=== PATIENT | male | born 1945 | race Caucasian/White ===

== ENCOUNTER 2024-03-19 06:54 | Observation (INO) | payer OTHER, SELFPAY ==
[2024-03-19] VITALS (16 sets, daily range): BP systolic 118–144; BP diastolic 59–80; PULSE 63–100; RESP 16–96; TEMP 36.6–37.3; O2SAT 94–100; BMI 37.1
--- NOTE | 2024-03-19 | XR_ITS ---
Examinations: MRI Brain without intravenous contrast. MRA brain without intravenous contrast. MRA carotids without intravenous contrast 3-D vascular reconstructions Date and time of exam: March 19, 2024 1403 hours INDICATIONS: Onset left-sided body weakness beginning 220 this morning, CT stroke alert, new onset left upper extremity weakness left facial droop and slurred speech, patient admitted one week ago for transient ischemic attack Technique: Multiple axial and sagittal images of the brain have been obtained MRA brain carotid images without contrast obtained, including 3-D postprocessing, vascular maximum intensity projection images Findings: Sellaturcica is not enlarged. The optic chiasm and infundibular stalk are not remarkable. Prepontine and interpeduncular cisterns are not enlarged. No localized enlargement of the medulla or charles. Fourth ventricle and cerebellar tonsils normal in position. Subacute hemorrhage is not seen. Fourth ventricle is midline. Mass in the cerebellopontine angle region is not evident. 7th and 8th nerve complexes exhibits symmetry. Globes are symmetrical with no retro-orbital mass. Increased white matter signal prominent Diffusion-weighted images demonstrate no focus of restricted diffusion Mass-effect upon the ventricular system is not identified. MRA carotid images degraded by patient motion. MRA brain images degraded by patient motion, no large vessel occlusions Impression: Negative for acute hemorrhage mass effect or midline shift No acute infarct Prominent chronic microvascular white matter change
--- NOTE | 2024-03-19 06:58 | PD.EDNEURO ---
Neuro Symptoms Deficit-RME/HPI General Chief Complaint: Neuro Symptoms/Deficit Stated Complaint: POSS STROKE Time Seen by Provider: 03/19/24 07:00 Arrival date/time: 03/19/24 06:54 RME / HPI RME / HPI Narrative: 78 year old male with history of TIA, CHF, hypertension, diabetes, hyperlipidemia presents to the ED BIBA from home for evaluation of left sided weakness today. Per medics, reported at 02:20 this morning patient had a fall and called 911 where fire department responded and assisted the patient back on to bed. noticed at around 06:20 am patient had new onset left upper extremity weakness, left facial droop and slurred speech. Additionally reported patient was just admitted here 1 week ago for TIA. Medics stated on scene patient was found to be sitting in his recliner leaning on the right side and required full assistance getting on the gurney. On their assessment noted patient's LUE was completely flaccid and had BLE weakness. Related Data Home Medications ?Medication ?Instructions ?Recorded ?Confirmed metformin 1,000 mg tablet 1,000 mg PO BID #0 tabs 11/30/13 03/10/24 (Glucophage) metoprolol succinate 50 mg 25 mg PO QDAY 04/26/18 03/10/24 tablet,extended release 24 hr furosemide 40 mg tablet 40 mg PO BID 08/25/21 03/10/24 potassium chloride 8 mEq 8 meq PO QDAY 08/25/21 03/10/24 tablet,extended release (Klor-Con) amlodipine 10 mg-benazepril 40 mg 1 cap PO ONCE PM 03/10/24 03/10/24 capsule Previous Rx's ?Medication ?Instructions ?Recorded aspirin 81 mg tablet,delayed 81 mg PO QDAY #30 tabs 03/12/24 release atorvastatin 10 mg tablet 40 mg (4 x 10 mg) PO QDAY #90 tabs 03/12/24 Allergies Allergy/AdvReac Type Severity Reaction Status Date / Time No Known Allergies Allergy Verified 12/01/22 13:55 Review of Systems Review of Systems Narrative Review of Systems: Gen: No fever, no chills, no weight loss EYES: No discharge, no visual changes, no pain HEENT: No ear pain, no congestion, no sore throat PULM: no shortness of breath, no cough, no congestion CV: No chest pain, no dyspnea on exertion, no palpitations, no chest tightness GI: No nausea, no vomiting, no diarrhea, no pain, no constipation : No frequency, no urgency,? no dysuria Musc/skel: No joint pain, no back pain Skin: No rash, no ecchymosis, no lesions Psyc: No hallucinations, no depression Heme/Lymph: No easy bleeding or bruising tendencies Neuro: +LUE weakness, +BLE weakness, +facial drop, +slurred speech, no headache Past Medical History Past Medical History NEUROLOGIC: Positive Peripheral Neuropathy and Spinal Cord Injury CARDIAC: Positive Cardiac Disorders, Hypercholesterolemia, Congestive Heart Failure, Cellulitis and Hypertension RESPIRATORY: Positive Smoking (QUIT 1968.) GASTROINTESTINAL: Positive Obesity GENITOURINARY: Positive Benign Prostatic Hyperplasia MUSCULOSKELETAL: Positive Arthritis and Degenerative Disk Disease ENDOCRINE: Positive Endocrine Disorders and Diabetes Mellitus Type 2 OTHER HISTORY: Positive Blood Transfusions, Chicken Pox, Measles and Mumps Family History FAMILY HISTORY: Positive Family Cardiac Disorders and Family Surgery Surgical History SURGICAL: Positive Joint Replacement Social History SMOKING STATUS: Former smoker SUBSTANCE USE: does not use ED Exam Narrative Physical exam: GENERAL APPEARANCE: AxOx4, no obvious distress, nontoxic appearing HEENT: NC, AT. MMM. EOMI, clear conjunctiva, oropharynx clear. NECK: Supple without lymphadenopathy. No stiffness or restricted ROM. HEART: Normal rate and regular rhythm, normal S1/S1, no m/r/g LUNGS: CTAB, moving air well. No crackles or wheezes are heard. ABDOMEN: Soft, nontender, nondistended with good bowel sounds heard. BACK: No midline C/T/L spine pain or deformity, No CVAT, no obvious deformity. EXTREMITIES: Without cyanosis, clubbing or edema. NEUROLOGICAL: Alert and oriented. Slight slurred speech. Right facial droop. Left upper extremity tone but will not lift against gravity. Right upper extremity tone, can lift against gravity with slight drift. Able to move bilateral lower extremities but does not lift against gravity. Skin: Warm and dry without any rash. Course Quality Measures Suspected type of Stroke: Non Acute Last known well (date): 03/19/24 Last known well (time): 02:20 Tenecteplase given: Reason(s) TPA not given: Outside the time window not given stroke Orders Category Date Time Status Bedside Blood Glucose NOW Care 03/19/24 06:59 Active Matzo Forming Machine Operator NOW Care 03/19/24 06:59 Active Continuous Pulse Oximetry NOW Care 03/19/24 06:59 Completed EKG (ED ONLY) *Do not use* NOW Care 03/19/24 06:59 Completed In and Out Catheter NEEDED Care 03/19/24 06:59 Active Insert IV NOW Care 03/19/24 06:59 Active NIH Stroke Scale now Care 03/19/24 06:59 Active NPO NOW Care 03/19/24 06:59 Active Neuro Check Q30MIN Care 03/19/24 06:59 Active Nurse Swallow Screen x1 Care 03/19/24 06:59 Active Consult to Neurology / Tele-Neurology Routine Cons 03/19/24 06:[address] angio stroke protocol Stat Exams 03/19/24 06:[address] stroke protocol Stat Exams 03/19/24 06:59 Completed EKG (ED Only) Stat Exams 03/19/24 06:59 Draft Alcohol, Blood Medical Stat Lab 03/19/24 07:17 Completed CBC Stat Lab 03/19/24 07:17 Completed Comprehensive Metabolic Panel Stat Lab 03/19/24 07:17 Completed Drug Screen,Urine Stat Lab 03/19/24 06:59 Ordered Magnesium Stat Lab 03/19/24 07:17 Completed Partial Thromboplastin Time Stat Lab 03/19/24 07:17 Completed Prothrombin Time with INR Stat Lab 03/19/24 07:17 Completed Troponin I Stat Lab 03/19/24 07:17 Completed Urinalysis Stat Lab 03/19/24 06:59 Ordered Urine Culture Stat Lab 03/19/24 06:59 Ordered Aspirin Med 03/19/24 07:55 Discontinued 325 mg PO X1 ONE Clopidogrel [Plavix] Med 03/19/24 07:42 Discontinued 300 mg PO X1 ONE Ondansetron Inj [Zofran Inj] Med 03/19/24 06:59 Active 4 mg IV Q4HR PRN Oxygen Delivery NOW RT 03/19/24 06:59 Active Reevaluation(s) Reevaluation #1: Patient has no chest pain at this time. The EKG performed today has a new left bundle branch block compared to EKG on 02/28/2024. Patient states he was referred to see Dr. Ruiz however has not had his first appointment yet. Time: 08:15 Vital Signs Vital signs: Vital Signs Temperature 98.4 F 03/19/24 06:58 Pulse Rate 98 03/19/24 06:58 Respiratory Rate 19 03/19/24 06:58 Blood Pressure 130/72 03/19/24 06:58 Pulse Oximetry (%) 98 03/19/24 06:58 Oxygen Delivery Method Room Air 03/19/24 06:58 Pulse ox is 98% on room air which is adequate. Neuro Symptoms / Deficit MDM Narrative MDM Narrative:: Deidra Segovia am scribing for and in the presence of Dr. Cosby. Patient data External records reviewed:: [facility] previous records (I reviewed admission from 03/09/2024 through 03/13/2024 for TIA ) and EMS form Clinical information provided by:: patient and EMS Social determinants that could affect healthcare access:: none Patient has the following chronic illnesses:: TIA, CHF, hypertension, diabetes, hyperlipidemia How is presenting disease/condition affected by chronic disease/condition?: exacerbated by Evaluation data The following diagnostics were reviewed and interpreted by me:: lab results, radiology exam(s) and EKG tracing(s) (Sinus rhythm, rate 86, left bundle branch block that is new compared to EKG on 03/09/2024. QRS at that time was 86ms and today is 148ms in bundle branch pattern. ) Lab and/or radiology exams considered but not ordered:: None Interpretation Summary: Ordering Physician: Dalton Cosby MD Date of Service: 03/19/24 Procedure(s): CT stroke protocol Accession Number(s): [id number] cc: Dalton Cosby MD; Sergei Vo MD~ Examination: CT brain head without contrast. 2-D sagittal coronal reconstructions Date and time of exam:March 19, 2024 0703 hrs. Indications: Onset left-sided body weakness today, focal neurologic deficit, stroke alert, history CVA right caudate nucleus on CT brain scan March 09, 2024 CTDI: vol (mGy):52.5 DLP: (mGycm):1097 Technique: Multiple CT axial sections of the brain have been obtained, 5 mm slice thickness. Contrast has not been administered. 2-D sagittal, coronal reconstructions have been obtained Low dose protocols were performed. One or more of the following dose reduction techniques were used; automated exposure control, adjustment of the mA and/or KV according to patient size, use of iterative reconstruction technique. Findings: No significant ventricular enlargement. 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 No mass effect or midline shift Basal cisterns are not remarkable. Fourth ventricle is midline. Cranial vault intact. Impression: Negative for acute hemorrhage, mass effect or midline shift Dictated By:Sergei Vo MD Signed By:<Electronically signed by Sergei Vo MD in OV>03/19/24 0712 Ordering Physician: Dalton Cosby MD Date of Service: 03/19/24 Procedure(s): CT angio stroke protocol Accession Number(s): [id number] cc: Jose Manuel Duff MD; Dalton Cosby MD; Sergei Vo MD~ Examination: CTA carotids with intravenous contrast CTA brain, head with intravenous contrast. 2-D sagittal, coronal reconstructions. 3-D reconstructions. Exam date and time: March 19, 2024 0716 hrs. Indications: Stroke alert, onset left-sided body weakness headache today CTDI: vol (mGy) 18.9 DLP: (mGycm) 446 Technique: Multiple CTA axial brain, head carotid images post intravenous contrast injection 75 cc, Isovue-[id number]. 2-D sagittal, coronal reconstructions. 3-D reconstructions, 3-D post processing including vascular maximum intensity projection images. Low dose protocols were performed. One or more of the following dose reduction techniques were used; automated exposure control, adjustment of the mA and/or KV according to patient size, use of iterative reconstruction technique. Findings: No significant common carotid carotid bifurcation or internal carotid artery stenoses Dominant left vertebral artery with no critical stenoses No large vessel occlusions involving middle cerebral or anterior cerebral branches 2 focal areas of lack of filling of the left posterior cerebral artery, P1 segment and junction P1 segment with P2 segment, clinical correlation advised Impression: No significant neck arterial stenoses 2 focal areas of possible stenoses in the left posterior cerebral artery, P1 segment and junction P1 segment with P2 segment, clinical correlation advised Recommend repeat brain MRI MRA without contrast, stroke protocol, follow-up Dictated By:Sergei Vo MD Signed By:<Electronically signed by Sergei Vo MD in OV>03/19/24 0806 Medications / Prescriptions Medications or Prescriptions considered but not ordered:: None Medication administrations:: Medication Administration History Ondansetron HCl (Ondansetron Inj 2 Mg/Ml Inj 2 Ml) 4 mg IV Q4HR PRN PRN Reason: NAUSEA OR VOMITING Stop: 04/18/24 06:58 Discontinued Medications Aspirin (Aspirin 325 Mg Tablet) 325 mg PO X1 ONE Stop: 03/19/24 07:56 Last Admin: 03/19/24 08:12 Dose: 325 mg Documented By: MAGDA Clopidogrel Bisulfate (Clopidogrel Bisulfate 75 Mg Tablet) 300 mg PO X1 ONE Stop: 03/19/24 07:43 Last Admin: 03/19/24 08:12 Dose: 300 mg Documented By: MAGDA See above Consultations Consultation(s) initiated? (list below): Yes Consultation #1 (Physician, Specialty, Details): I spoke with teleneurologist Dr. Rendon, states patient is no a tpa candidate given his LKW is above the 4.5 window. Advising starting patient on a loading dose of Aspirin and Plavix. Time: 07:37 Consultation #2 (Physician, Specialty, Details): I spoke with resident Dr. Mueller working with Dr. Webster. Discussed patients PMHx, HPI, ED course, exam findings, labs, and radiology results. The hospitalist agree to accept the patient for admission. Time: 09:25 Diagnosis Neuro Differential Diagnosis: subarachnoid hemorrhage, cerebrovascular accident and transient cerebral ischemia Most likely diagnosis given after review of the tests above:: TIA Admission Indicated Admission indicated?: indicated Admission Request Was there a request for admission?: Yes Admission Attestation Admission request attestation: Discussed case with [] from Hospitalist service regarding admission. Discussed patients ED course, exam findings, labs, and radiology results. The Hospitalist [agrees,declines] to accept the patient for admission. Disposition Plan Disposition Plan: Admit Critical Care Time Critical Care Time Critical Care Time: Yes Total Critical Care Time (min.): 35 Attestation: The high probability of sudden, clinically significant deterioration in the patient's condition required the highest level of my preparedness to intervene urgently. The services I provided to this patient were to treat and/or prevent clinically significant deterioration. Services included the following: chart data review, reviewing nursing notes and/or old charts, documentation time, informatics consultant collaboration regarding findings and treatment options, medication orders and management, direct patient care, vital sign assessments and ordering, interpreting and reviewing diagnostic studies and lab tests. Aggregate critical care time includes only time during which I was engaged in work directly related to the patient's care, as described above, whether at bedside or elsewhere in the Emergency Department. It did not include time spent performing other reported procedures or the services of residents, students, nurses or physician assistants. Discharge Plan Plan Patient Disposition: Admit Acute Care w/in Hospital Prescriptions/Referrals Prescriptions/Med Rec: No Action metformin [Glucophage] 1,000 MG tablet 1,000 mg PO BID Qty: 0 furosemide 40 mg tablet 40 mg PO BID Patient Comments: TAKE 1 TABLET BY MOUTH ONCE A DAY AT NOON Rx Instructions: TAKE ONE TABLET BY MOUTH AT 10AM & ONE TABLET AT 4PM potassium chloride [Klor-Con 8] 8 mEq tablet extended release 8 meq PO QDAY Patient Comments: TAKE 1 TABLET BY MOUTH ONCE A DAY AT NOON metoprolol succinate 50 mg Tablet Extended Release 24 Hr 25 mg PO QDAY amlodipine-benazepril 10-40 mg capsule 1 cap PO ONCE PM Patient Comments: TAKE 1 CAPSULE BY MOUTH DAILY AT DINNER. aspirin 81 mg Tablet,Delayed Release (Dr/Ec) 81 mg PO QDAY Qty: 30 0RF atorvastatin 10 mg Tablet 40 mg PO QDAY Qty: 90 0RF Referrals: Jose Manuel Duff MD [Primary Care Provider] - In 1 week Problem List Clinical Impression: TIA (transient ischemic attack) Patient/Caregiver Discharge Instructions Print Language: Telugu Stand Alone Forms: [employer]ily[employer] Award Info., Patient Portal Info Letter
--- NOTE | 2024-03-19 06:59 | EKG_ITS ---
[facility] Test Date: 2024-03-19 Pat Name: JEFF BUSTAMANTE Department: Room: - Gender: Male Herb Grower: : 1945 Requested By: Dalton Cosby Order Number: [id number] Reading MD: Dalton Cosby Measurements Intervals Sherrill Rate: 86 P: 62 NH: 170 QRS: -43 QRSD: 148 T: 91 QT: 398 QTc: 478 Interpretive Statements SINUS RHYTHM MARKED LEFT AXIS DEVIATION [QRS AXIS < -30] LEFT BUNDLE BRANCH BLOCK [120+ ms QRS DURATION, 80+ ms Q/S IN V1/V2, 85+ ms R IN I/aVL/V5/V6] Compared to ECG 03/09/2024 23:25:52 Left-axis deviation now present Left bundle-branch block now present Myocardial infarct finding no longer present /store/S0/[id number]/ecg/[id number].pdf
--- NOTE | 2024-03-19 07:01 | PC.NURSE ---
Tele Neuro Case # [id number]
--- NOTE | 2024-03-19 07:18 | ESCONSULT_ITS ---
Tele Neuro Consultation Consultation Date 03/19/24 Most Recent Vital Signs Last Vital Signs Temp 98.4 F 03/19/24 06:58 Pulse 98 03/19/24 06:58 Resp 19 03/19/24 06:58 BP 130/72 03/19/24 06:58 Pulse Ox 98 03/19/24 06:58 O2 Del Method Room Air 03/19/24 06:58 Consultation Narrative [facility] Consult [facility] Patient Name:???JEFF BUSTAMANTE Date of :???1945 Identification Number:??? Date of Service:???03/19/2024 07:00:53 Diagnosis:?G93.41 - Encephalopathy Metabolic ?I63.89 - Cerebrovascular accident (CVA) due to other mechanism (HCCC) Impression: ?dysarthria and left sided weakness with left visual field cut; possible acute ischemic stroke vs stroke recrudescence in the setting of possible acute toxic or metabolic or infectious encephalopathy (however, left visual field cut is not explained by prior right lacunar stroke) ? ?Plan: recommend CTA head/neck. load with aspirin 325 mg x1 and plavix 300 mg x1. Allow permissive hypertension up to 220/110 for first 24 hours with gradual reduction for goal normotension thereafter. Recommend [id number] workup, including U/A, UCx. Recommend admission for further workup. Will need an MRI brain with and without contrast when able, echo, continue to monitor on telemetry, labs for risk factor stratification (lipid panel, HbA1c, TSH with free T4), PT/OT/speech eval. ? ?Plan discussed with patient, ED team, including ED provider, who are all in agreement with plan. All questions answered to the best of my ability. Sign Out: ? Discussed with Emergency Department Provider Metrics: Last Known Well: 03/19/2024 02:00:00 Dispatch Time: 03/19/2024 07:00:53 Arrival Time: 03/19/2024 06:58:00 Initial Response Time: 03/19/2024 07:03:48Symptoms: slurred speech with left facial droop and left arm weakness. Initial patient interaction: 03/19/2024 07:19:24 NIHSS Assessment Completed: 03/19/2024 07:34:33Patient is not a candidate for Thrombolytic. Thrombolytic Medical Decision: 03/19/2024 07:35:00Patient was not deemed candidate for Thrombolytic because of following reasons: LKW outside 4.5 hr window. . Imaging was personally reviewed. CTH shows diffuse atrophy and small vessel ischemic disease as well as a chronic appearing hypodensity in the right caudate head/anterior limb of internal capsule but is negative for bleed or early ischemic changes. Primary Provider Notified of Diagnostic Impression and Management Plan on: 03/19/2024 07:37:20 History of Present Illness:Patient is a 78 year old Male. Patient was brought by EMS for symptoms of slurred speech with left facial droop and left arm weakness. 78 yo man with a history of hypertension, hyperlipidemia, diabetes, prior stroke/TIA (left-sided weakness) who presents to [facility] ED via EMS for slurred speech, left facial droop, and left arm weakness LKW unclear. however, he fell out of his recliner at 0200 am so EMS was called for assistance to get him back in bed. no facial droop or left arm weakness noted at that time. however, new slurred speech and left facial droop and left arm weakness noted upon waking up this morning at 0615. of note, he presented last week with transient left-sided weakness. he was admitted 03/09/24-03/12/24. CT/CTA/MRI/MRA/TTE where all unrevealing for acute findings. spot EEG showed diffuse slowing without asymmetry or interictal activity noted. Ambulates with a walker at baseline but is very sedentary and stays in his recliner for the most part. ? Past Medical History: ?Hypertension ?Diabetes Mellitus ?Hyperlipidemia ?Stroke Medications: No Anticoagulant use? Antiplatelet use:?Yes?aspirin 81 mg daily Reviewed EMR for current medications Other Medications Pertinent To Assessment Include: amlodipine-benazepril ?metoprolol ?atorvastatin ?metformin Allergies:? Reviewed Social History: Smoking: No Family History: There is no family history of premature cerebrovascular disease pertinent to this consultation ROS : 14 Points Review of Systems was performed and was negative except mentioned in HPI. Past Surgical History: There Is No Surgical History Contributory To Today?s Visit ? Examination: BP(130/72),?Pulse(98),?Blood Glucose(134) 1A: Level of Consciousness - Alert; keenly responsive?+ 0 1B: Ask Month and Age - Both Questions Right?+ 0 1C: Blink Eyes & Squeeze Hands - Performs Both Tasks?+ 0 2: Test Horizontal Extraocular Movements - Normal?+ 0 3: Test Visual Ordoñez - Partial Hemianopia?+ 1 4: Test Facial Palsy (Use Grimace if Obtunded) - Partial paralysis (lower face)? + 2 5A: Test Left Arm Motor Drift - Drift, but doesn't hit bed?+ 1 5B: Test Right Arm Motor Drift - No Drift for 10 Seconds?+ 0 6A: Test Left Leg Motor Drift - No Drift for 5 Seconds?+ 0 6B: Test Right Leg Motor Drift - No Drift for 5 Seconds?+ 0 7: Test Limb Ataxia (FNF/Heel-Garcias) - No Ataxia?+ 0 8: Test Sensation - Normal; No sensory loss?+ 0 9: Test Language/Aphasia - Normal; No aphasia?+ 0 10: Test Dysarthria - Normal?+ 0 11: Test Extinction/Inattention - No abnormality?+ 0 NIHSS Score:?4 NIHSS Free Text :?appears to have a left visual field cut with blink to threat. Pre-Morbid Modified Meliton Scale:3 Points = Moderate disability; requiring some help, but able to walk without assistance Spoke with :?Dr. Cosby This consult was conducted in real time using interactive audio and video technology. Patient was informed of the technology being used for this visit and agreed to proceed. Patient located in hospital and provider located at home/office setting. Patient is being evaluated for possible acute neurologic impairment and high pr obability of imminent or life-threatening deterioration. I spent total of 36 minutes providing care to this patient, including time for face to face visit via telemedicine, review of medical records, imaging studies and discussion of findings with providers, the patient and/or family. Dr Vicky Rendon [facility] For Inpatient follow-up with [facility] physician please call [facility] at [phone]- [phone]. As we are not an outpatient service for any post hospital discharge needs please contact the hospital for assistance. If you have any questions for the [facility] physicians or need to reconsult for clinical or diagnostic changes please contact us via [facility] at .
[2024-03-19 07:25] LABS: Basophils % (Auto) 0 % (0-2.5); Eosinophils % (Auto) 0 % (0-10); Hematocrit 42.5 % (41.0-53.0); Hemoglobin 14.3 g/dL (13.5-16.0); Immature Granulocytes % (Auto) 0 % (0-0); Immature Granulocytes Auto 0.05 Thou/mm3 (0.00-0.00); Lymphocytes # (Auto) 1.5 Thou/mm3 (1.0-4.8); Lymphocytes % (Auto) 11 % (10-50); Mean Corpuscular HGB Conc 33.6 g/dl (31.0-37.0); Mean Corpuscular Hemoglobin 30.8 pg (25.0-35.0); Mean Corpuscular Volume 92 fL (80-100); Monocytes # (Auto) 0.5 Thou/mm3 (0.0-0.8); Monocytes % (Auto) 4 % (0-12); Neutrophils % (Auto) 84 % (37-80); Nucleated Red Blood Cell % 0 /100 WBC (0); Platelet Count 170 Thou/mm3 (140-440); RDW Standard Deviation 45.9 fL (35.1-43.9); Red Blood Count 4.64 Miln/mm3 (4.50-5.90)
--- NOTE | 2024-03-19 07:33 | PC.NURSE ---
Patient back from ct, Dr. Rendon, teleneurologist evaluating patient, no Tnkase to be given at this time, Patient to er via ems from home with c/o left facial droop, slurred speech and left sided weakness since 0620 this am. Patient recently admitted to hospital for similar symtoms and was dx'd with TIA. Currently patient alert and oriented x 3, speech clear, slilght left facial droop, and left sided weakness. Patient following commands and answering questions appropriately. Call light within reach, awaiting further orders.
[2024-03-19 07:40] LABS: Partial Thromboplastin Time 26.2 Seconds (22.0-36.0); Prothrombin Time 11.4 Seconds (9.0-12.2)
[2024-03-19 07:44] LABS: Alanine Aminotransferase 14 U/L (10-49); Albumin, Serum 4.1 gm/dL (3.4-4.8); Albumin/Globulin Ratio 1.6 (1.2-2.2); Alcohol, Blood Medical < 3.0 mg/dL (0-10.0); Alkaline Phosphatase 68 U/L (46-116); Anion Gap 11 (7-16); BUN/Creatinine Ratio 16 Ratio (12-20); Bilirubin,Total 0.4 mg/dL (0.3-1.2); Blood Urea Nitrogen 25 mg/dL (9-23); Calcium 9.1 mg/dL (8.3-10.6); Calcium (Corrected) 9.1 mg/dL (8.5-10.1); Carbon Dioxide 20.6 mMol/L (20.0-31.0); Chloride 102 mMol/L (98-107); Creatinine (Component) 1.6 mg/dL (0.6-1.3); Estimated Creatinine Clearance 47.3 mL/min (>60); Globulin 2.6 gm/dL (2.3-3.5); Glucose 111 mg/dL (74-106); Osmolality,Calculated 273 (275-295); Potassium 4.9 mMol/L (3.4-5.1); Sodium 134 mMol/L (136-145); Total Protein 6.7 gm/dL (5.7-8.2); Troponin I 0.043 ng/mL (0.0-0.045); eGFR 43 See Note
[2024-03-19 07:56] LABS: Aspartate Amino Transferase 15 U/L (0-34)
[2024-03-19] MEDS: CLOPIDOGREL BISULFATE 75 MG TABLET 300 MG PO (08:12)
[2024-03-19] MEDS: Aspirin 325 MG TABLET PO (08:12)
--- NOTE | 2024-03-19 09:10 | PC.NURSE ---
Patient provided with urinal to obtain urine sample, patient able to hold urinal without difficulty.
--- NOTE | 2024-03-19 09:32 | PC.NURSE ---
Unable to perform in and out cathetar after 4 attempts, Dr. Cosby made aware, patient will try to obtain urine sample via urinal.
--- NOTE | 2024-03-19 11:58 | ECHO_ITS ---
Transthoracic Echo Report Ht (in): 70 Wt (lb): 259 Exam Location: Echo Lab Status: Emergency Whiskey Proof Reader: Tsering Charles Indications: Procedure Performed: BP: 117 / 62 HR: 72 Rhythm: Sinus Technical Quality: Technically difficult study Contrast: Agitated Saline Total Dose (mL): MEASUREMENTS (Male / Female) Normal Values 2D ECHO LV Diastolic Diameter PLAX 4.8 cm 4.2 - 5.9 / 3.9 - 5.3 cm LV Systolic Diameter PLAX 3.4 cm IVS Diastolic Thickness 0.9 cm 0.6 - 1.0 / 0.6 - 0.9 cm LVPW Diastolic Thickness 1.1 cm 0.6 - 1.0 / 0.6 - 0.9 cm LV Relative Wall Thickness 0.4 LVOT Diameter 2.0 cm LA Volume Index 22.3 cm?/m? 16 - 28 cm?/m? Ascending Aorta Diameter 3.3 cm M-MODE Aortic Root Diameter MM 2.8 cm LA Systolic Diameter MM 4.5 cm LA Ao Ratio MM 1.6 AV Cusp Separation MM 1.9 cm DOPPLER AV Peak Velocity 258.4 cm/s AV Peak Gradient 26.7 mmHg AV Mean Gradient 12.8 mmHg AV Velocity Time Integral 49.0 cm LVOT Peak Velocity 103.0 cm/s LVOT Peak Gradient 4.2 mmHg LVOT Velocity Time Integral 24.3 cm LVOT Cardiac Index 2238.8 cm?/min?m? AV Area Cont Eq vti 1.6 cm? AV Area Cont Eq pk 1.3 cm? MV Peak Velocity 96.1 cm/s MV Peak Gradient 3.7 mmHg MV Mean Velocity 57.0 cm/s MV Mean Gradient 2.0 mmHg MV Area PHT 3.7 cm? Mitral E Point Velocity 79.5 cm/s Mitral A Point Velocity 101.0 cm/s Mitral E to A Ratio 0.8 LV E' Lateral Velocity 9.3 cm/s Mitral E to LV E' Lateral Ratio 8.6 LV E' Septal Velocity 7.5 cm/s Mitral E to LV E' Septal Ratio 10.6 FINDINGS Left Ventricle Normal left ventricular size, wall thickness, systolic function with no obvious regional wall motion abnormalities.The ejection fraction is visually estimated at 55-60%. Right Ventricle The right ventricle is normal in size and systolic function. Left Atrium The left atrium is normal by two-dimensional, color flow and Doppler imaging with no structural abnormalities, no thrombus formation present. Right Atrium The right atrium is normal by two-dimensional imaging, color flow and Doppler imaging with no struct ural abnormalities, no thrombus formation present. Atrial Septum The interatrial septum appears normal with no evidence of a shunt. Aorta The aorta is normal by two-dimensional, color flow and Doppler interrogation. Mitral Valve The mitral valve is normal by two-dimensional, color flow and Doppler interrogation. There is trace mitral valve regurgitation. Aortic Valve The aortic valve is trileaflet. Moderate stenosis, mean gradient 17mmHg, vmax 2.9m/s. There is no significant aortic valve regurgitation. Tricuspid Valve The tricuspid valve is normal by two-dimensional, color flow and Doppler interrogation. There is tra ce tricuspid valve regurgitation. Pulmonic Valve The pulmonic valve is not well visualized. There is no significant pulmonic valve regurgitation. Vessels The pulmonary artery appears normal. The inferior vena cava pulmonary and hepatic veins appear carmelo l. Pericardium The pericardium is normal by two-dimensional imaging. There is no significant pericardial effusion. CONCLUSIONS Indication: CVA Suboptimal / poor images. Negative bubble study. TTE is suboptimal to rule out PFO.Consider JACQUELINE if h igh clincial suspicion. Normal LV size and function. Stage I diastolic dysfunction. Estimated EF 55-60% RA/RV not well visualized. Trace MR, TR. Mild AV stenosis, mean gradient 17mmHg, vmax 2.9m/s. RAQUEL 1.3 sq cm Sebastien Ortiz (Electronically Signed) Final Date: 20 March 2024 22:22
[2024-03-19 12:40] LABS: Collection Type, Urine Clean Catch
[2024-03-19 12:48] LABS: Bilirubin,Urine Negative (Negative); Blood,Urine Trace (Negative); Clarity,Urine Clear (Clear/Hazy); Color,Urine Lt-Yellow (Lt Yel-Yel); Glucose, Urine Negative (Negative); Ketones,Urine Trace (Negative); Leukocyte Esterase,Urine Negative (Negative); Nitrite,Urine Negative (Negative); Protein,Urine 1+ (Neg - Trace); RBC,Urine 3 /hpf (0-3); Specific Gravity,Urine 1.043 (1.001-1.035); Squamous Epithelial Cell,Urine 2 /hpf (0-5); Urobilinogen,Urine Negative mg/dL (0.0-1.0); WBC,Urine 1 /hpf (0-5)
--- NOTE | 2024-03-19 13:49 | PC.NURSE ---
Patient gone to ct via [facility] with tree and shrub technician.
[2024-03-19 14:12] LABS: Amphetamine/Methamp Scrn,U Negative (Negative); Barbiturate Screen,Urine Negative (Negative); Benzodiazepines Screen,Urine Negative (Negative); Benzoylecgonine Screen, Ur Negative (Negative); Fentanyl Screen,Urine Negative (Negative); Opiate Screen,Urine Negative (Negative); THC Screen,Urine Negative (Negative)
--- NOTE | 2024-03-19 14:24 | PC.NURSE ---
EMS HERE TO TRANSPORT PATIENT TO [facility], REPORT GIVEN TO ELECTROPLATER DOUGIE.
--- NOTE | 2024-03-19 14:51 | PC.NURSE ---
patient placed on waffle mattress
--- NOTE | 2024-03-19 15:25 | PCS.ST ---
Swallow Evall completed. No s/s of aspiration. Recommend Dysphagia 3 diet.
--- NOTE | 2024-03-19 16:18 | XR_ITS ---
Examination: Venous duplex lower extremity sonogram, bilateral. Date and time of exam: March 19, 2024 1629 hours INDICATIONS: Bilateral leg pitting edema beginning 2 years ago Technique: Multiple sonographic images of the deep venous system have been obtained. B-mode/2-D grayscale imaging of vascular structures and Doppler spectral analysis (waveforms) and color performed Both legs are examined. Findings: Deep venous systems do not demonstrate abnormal echogenicity. All visualized deep veins exhibit compressibility. All visualized deep veins exhibit augmentation. Impression: Negative for deep vein thrombosis
--- NOTE | 2024-03-19 16:24 | PC.NURSE ---
patient taken to ultrasound
--- NOTE | 2024-03-19 16:26 | ESHP_ITS ---
<Statement entered by Elvin Webster MD - 03/24/24 16:32> I reviewed above note and agree with findings and plans. I have also personally examined the patient with medicine team and went over assessment and plan with medical team including general internist and physician leader and resident physician. <Statement entered by Jael Mueller DO - 03/19/24 20:18> Senior attestation: Patient was examined and case was reviewed with team including attending physician. Note reviewed, I agree with most of its contents and agree with the patient's care. Patient is an 78 year old male with history of recent TIA, hypertension, T2DM, HFpEF, and pressure ulcers who presented to the ED with concerns of left sided weakness associated with slurred speech. Last well known time was 0220 on 03/19. In ED, stroke protocol was initiated with NIHSS assessment of 4 from tele-neuro. Following tele-neurology recommendations, patient was given aspirin and plavix, admitted to the telemetry for further investigation of possible CVA, MRI, echo and neurology recommendations pending. Will also order bilateral lower extremity ultrasound to rule out DVT. Jael Mueller DO PGY-3 Documentation for date of: 03/19/24 HPI History of Present Illness History of present illness: The patient is an 78-year-old male with a past medical history of hypertension, type II DM, HFpEF, cellulitis and pressure ulcers who was Biba to the ED on 03/19/2024 and the patient was said to have slumped in his chair and about 02:20 this morning. was said to have called 911 and the fire department responded and sustained the patient back to bed. However at about 6:20 AM, the patient was noted to have new onset left extremity weakness with a with facial droop and slurred speech. On the scene, the medics report that the patient was found sitting in his recliner leaning to the right side and required full assistance to get on the gurney and per their note left upper extremity was completely flaccid. Patient was recently discharged from the hospital about 7 days ago when he presented with left facial weakness and possible seizure-like activities and was admitted for stroke workup. Imaging on that admission was negative and patient was discharged home on aspirin 81 mg and atorvastatin. ED course: In the ED, stroke protocol was initiated and teleneuro was consulted. NIHSS by teleneuro assessment was 4 with visual field cuts on the left and facial palsy and left arm motor drift. Head CT and CTA were done and CTA showed some areas of possible stenosis in the left posterior cerebral artery. Per teleneuro, the patient was recommended to be admitted for further workup with a loading dose of aspirin and Plavix. Labs showed leukocytosis of 13, BUN 25, CR 1.6 and glucose 111 UA showed 1+ protein, otherwise unremarkable and U-Tox was negative. The patient is being admitted for acute CVA workup. Review of Systems Review of Systems Narrative Review of Systems: GENERAL: Denies fevers/chills or diaphoresis. HEENT: Denies headache or visual/hearing changes. Denies nasal discharge. NEURO: Admits unusual weakness and some change in his speech. CARDIO: Denies chest pain or palpitations. PULM: Denies SOB, coughing, or wheezing. GI: Denies abdominal pain, N/V/C/D/reflux/gas, bright red blood per rectum or melena. Reports having BMs. URO: Denies burning/itching/pain/urinary changes. MSK/EXT/SKIN: Denies joint/skeletal/muscle pain, issues/changes in upper or lower extremities, itchiness, or superficial pain. PSYCH: Cooperative, pleasant mood & affect. Exam Vital Signs Temp Pulse Resp BP Pulse Ox O2 Del Method O2 Flow Rate 98.6 F 82 20 122/75 98 Nasal Cannula 1 03/19/24 15:47 03/19/24 15:51 03/19/24 15:51 03/19/24 15:47 03/19/24 15:51 03/19/24 15:47 03/19/24 15:51 Narrative Exam GENERAL: AAOX3 NEURO: 5/5 strength in bilateral upper and lower extremities, no nystagmus noted no intention tremors and no drift. On visual exam, left visual field defect noted. Left facial droop HEENT: Moist mucosa. Eyes open, symmetrical, & clear CARDIO: No chest pain on palpation. Heart RRR, no obvious murmurs PULM: No noted coughing/dyspnea. Lungs CTA B/L GI: Abdomen soft, nondistended, no pain on palpation. BSx4 URO/INSTRUMENT SHOP SUPERVISOR:: No further abnormalities noted. SKIN/MSK/EXT: No wounds/rashes/edema/amputations, no pain on palpation. Pedal pulses present B/L Results: Labs 03/19/24 07:17 03/19/24 07:17 Labs: Short CBC 03/19/24 Range/Units 07:17 WBC 13.0 H (3.8-10.6) Thou/mm3 Hgb 14.3 (13.5-16.0) g/dL Hct 42.5 (41.0-53.0) % Plt Count 170 D (140-440) Thou/mm3 BMP 03/19/24 07:17 Sodium 134 L Potassium 4.9 Chloride 102 Carbon Dioxide 20.6 BUN 25 H Creatinine 1.6 H Glucose 111 H Calcium 9.1 Cardiac Enzymes 03/19/24 Range/Units 07:17 Troponin I 0.043 (0.0-0.045) ng/mL Liver Function 03/19/24 Range/Units 07:17 Total Bilirubin 0.4 (0.3-1.2) mg/dL AST 15 (0-34) U/L ALT 14 (10-49) U/L Alkaline Phosphatase 68 (46-116) U/L Albumin 4.1 (3.4-4.8) gm/dL Urine 03/19/24 Range/Units 12:25 Urine Color Lt-Yellow (Lt Yel-Yel) Urine Clarity Clear (Clear/Hazy) Urine pH 6.0 (5.0-7.0) Ur Specific [place] 1.043 H (1.001-1.035) Urine Protein 1+ A (Neg - Trace) Urine Glucose (UA) Negative (Negative) Quality Measures Quality Measures stroke Suspected type of Stroke: Non Acute Last known well (date): 03/19/24 Last known well (time): 02:20 Tenecteplase given: Reason(s) Tenecteplase not given: Outside the time window not given Rehab services: PT evaluation ordered and Speech Language Pathology eval ordered VTE Prophylaxis: mechanical Antithrombotic by day 2:: ordered Statin ordered: >75 y/o moderate or high intensity dose Anticoagulation ordered for A-fib or flutter (current or hx): not indicated Advance care planning discussed with:: patient Medications Home Medications and Allergies Home Medications ?Medication ?Instructions ?Recorded ?Confirmed ?Type metformin 1,000 mg tablet 1,000 mg PO BID #0 tabs 11/30/13 03/19/24 History (Glucophage) metoprolol succinate 50 mg 25 mg PO QDAY 04/26/18 03/19/24 History tablet,extended release 24 hr furosemide 40 mg tablet 40 mg PO BID 08/25/21 03/19/24 History potassium chloride 8 mEq 8 meq PO QDAY 08/25/21 03/10/24 History tablet,extended release (Klor-Con) amlodipine 10 mg-benazepril 40 mg 1 cap PO ONCE PM 03/10/24 03/19/24 History capsule atorvastatin 10 mg tablet 10 mg PO QPM 03/19/24 03/19/24 History Allergies Allergy/AdvReac Type Severity Reaction Status Date / Time No Known Allergies Allergy Verified 12/01/22 13:55 Visit Medications Acetaminophen (Acetaminophen 325 Mg Tablet) 650 mg PO Q6H PRN PRN Reason: Pain (1-4) and Fever >101.5 Stop: 04/18/24 11:53 Sodium Chloride (Ns) 1,000 mls @ 80 mls/hr IV .[id number] ONE Stop: 03/20/24 04:54 Ondansetron HCl (Ondansetron Inj 2 Mg/Ml Inj 2 Ml) 4 mg IV Q4HR PRN PRN Reason: NAUSEA OR VOMITING Stop: 04/18/24 06:58 Discontinued Medications Aspirin (Aspirin 325 Mg Tablet) 325 mg PO X1 ONE Stop: 03/19/24 07:56 Last Admin: 03/19/24 08:12 Dose: 325 mg Clopidogrel Bisulfate (Clopidogrel Bisulfate 75 Mg Tablet) 300 mg PO X1 ONE Stop: 03/19/24 07:43 Last Admin: 03/19/24 08:12 Dose: 300 mg Assessment & Plan Assessment Summary: The patient is an 78-year-old male with a past medical history of hypertension, type II DM, HFpEF, cellulitis and pressure ulcers who was Biba to the ED on 03/19/2024 and the patient was said to have slumped in his chair and about 02:20 this morning. was said to have called 911 and the fire department responded and sustained the patient back to bed. Patient has been admitted for acute CVA workup. #Acute CVA versus TIA #Left-sided weakness The patient is an 78-year-old male with a past medical history of hypertension, type II DM, HFpEF, cellulitis and pressure ulcers who was Biba to the ED on 03/19/2024 and the patient was said to have slumped in his chair and about 02:20 this morning. was said to have called 911 and the fire department responded and sustained the patient back to bed. However at about 6:20 AM, the patient was noted to have new onset left extremity weakness with a with facial droop and slurred speech. NIHSS by teleneuro assessment was 4 with visual field cuts on the left and facial palsy and left arm motor drift. Head CT and CTA were done and CTA showed some areas of possible stenosis in the left posterior cerebral artery. Per teleneuro, the patient was recommended to be admitted for further workup with a loading dose of aspirin and Plavix. Plan: -Admit telemetry -Neurology consulted, appreciate recommendations -Aspirin 81 mg and Plavix 75 mg once continue from tomorrow -N.p.o. to swallow eval -Aspiration and seizure precautions -Head of bed elevation 30 degrees -TSH, lipid panel, A1c follow-up -Cardiac echo -MRI stroke protocol #History of cellulitis #Bilateral lower extremity edema The patient has bilateral pitting edema with cellulitis and said he has had it for a long time. Although chronic, will follow-up with ultrasound of bilateral extremities to rule out DVT. Plan: -US bilateral LE #Hx of DM2-ruled out ?A1c on 03/10/2024 was 5.4 Blood glucose currently within normal limits Plan: ?Accu-Cheks and hypoglycemic protocol ?Will continue to monitor #HFpEF (55%) #Hx of HTN ?Patient had ejection fraction of 55% from echo on last admission ?Currently has no shortness of breath, but does have bilateral lower extremity edema. Plan: ?Holding off on antihypertensive medication as we are allowing permissive hypertension and patient's blood pressure has been stable. 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
--- NOTE | 2024-03-19 17:32 | PC.NURSE ---
Patient back from u/s per tech patient unable to tolerate BLE u/s,tech was only able to perform exam in one leg, patient c/o pain when tech pressing on legs with probe. Called Dr. Mueller state give tylenol per md order for pain.
[2024-03-19] MEDS: ACETAMINOPHEN 325 MG TABLET 650 MG PO (17:34)
[2024-03-19] MEDS: SODIUM CHLORIDE 0.9% 1000 ML 1,000 ML 80 ML IV (17:36)
[2024-03-20] VITALS (9 sets, daily range): BP systolic 113–141; BP diastolic 62–89; PULSE 72–99; RESP 15–96; TEMP 36.1–36.6; O2SAT 94–98; BMI 24.2; BMI 24.1
[2024-03-20] MEDS: CLOPIDOGREL BISULFATE 75 MG TABLET PO (06:01)
[2024-03-20] MEDS: ASPIRIN EC 81 MG TABEC PO (06:01)
[2024-03-20 06:22] LABS: Alanine Aminotransferase 10 U/L (10-49); Albumin, Serum 3.7 gm/dL (3.4-4.8); Albumin/Globulin Ratio 1.5 (1.2-2.2); Alkaline Phosphatase 58 U/L (46-116); Anion Gap 7 (7-16); Aspartate Amino Transferase 14 U/L (0-34); BUN/Creatinine Ratio 14 Ratio (12-20); Bilirubin,Total 0.5 mg/dL (0.3-1.2); Blood Urea Nitrogen 17 mg/dL (9-23); Calcium 8.7 mg/dL (8.3-10.6); Calcium (Corrected) 8.9 mg/dL (8.5-10.1); Carbon Dioxide 26.2 mMol/L (20.0-31.0); Cardiac Risk Estimate 3.1 RATIO (4.0-6.7); Chloride 105 mMol/L (98-107); Cholesterol 97 mg/dL (132-200); Creatinine (Component) 1.2 mg/dL (0.6-1.3); Estimated Creatinine Clearance 50.7 mL/min (>60); Globulin 2.4 gm/dL (2.3-3.5); Glucose 145 mg/dL (74-106); HDL Cholesterol 31 mg/dL (40-60); LDL Cholesterol,Calculated 44 mg/dL (0-130); Osmolality,Calculated 280 (275-295); Phosphorous 2.3 mg/dL (2.4-5.1); Potassium 4.3 mMol/L (3.4-5.1); Sodium 138 mMol/L (136-145); Thyroid Stimulating Hormone 1.04 uIU/mL (0.55-4.78); Total Protein 6.1 gm/dL (5.7-8.2); Triglycerides 111 mg/dL (30-150); eGFR > 60 See Note
[2024-03-20 08:49] LABS: Basophils # (Auto) 0.1 Thou/mm3 (0.0-0.2); Basophils % (Auto) 1 % (0-2.5); Eosinophils % (Auto) 0 % (0-10); Hematocrit 40.9 % (41.0-53.0); Hemoglobin 13.7 g/dL (13.5-16.0); Immature Granulocytes % (Auto) 0 % (0-0); Immature Granulocytes Auto 0.03 Thou/mm3 (0.00-0.00); Lymphocytes # (Auto) 1.9 Thou/mm3 (1.0-4.8); Lymphocytes % (Auto) 22 % (10-50); Mean Corpuscular HGB Conc 33.5 g/dl (31.0-37.0); Mean Corpuscular Hemoglobin 30.9 pg (25.0-35.0); Mean Corpuscular Volume 92 fL (80-100); Monocytes # (Auto) 0.5 Thou/mm3 (0.0-0.8); Monocytes % (Auto) 6 % (0-12); Neutrophils # (Auto) 6.2 Thou/mm3 (1.8-7.7); Neutrophils % (Auto) 71 % (37-80); Nucleated Red Blood Cell % 0 /100 WBC (0); Platelet Count 163 Thou/mm3 (140-440); RDW Standard Deviation 45.5 fL (35.1-43.9); Red Blood Count 4.44 Miln/mm3 (4.50-5.90); White Blood Count 8.8 Thou/mm3 (3.8-10.6)
--- NOTE | 2024-03-20 09:35 | PC.SS ---
SLIPPER MAKER attempted bedside contact with patient to conduct initial assessment. Patient not present, participating with ultrasound. SLIPPER MAKER to re-attempt at later time.
--- NOTE | 2024-03-20 10:33 | PC.DIETICIAN ---
Dietitian consult for wound: Add Vitamin C 500mg BID daily, zinc 220mg [id number], Multivitamin-Mineral daily to ensure adequate nutrient intake and promote wound healing Thank you
--- NOTE | 2024-03-20 11:29 | PC.SS ---
PUBLIC RELATIONS DIRECTOR conducted bedside contact with the patient conduct initial assessment and to discuss discharge planning. Patient confirmed demographic information. Patient resides at home with spouse, Cinthya Rios . Patient utilizes a walker to assist with ambulation. Patient does not utilize home oxygen. Patient requires assistance with the completion of ADL?s. Spouse provides assistance with ADL?s and provide transportation on behalf of the patient. Patient?s medical surrogate decision maker is spouse, Cinthya Rios. Patient?s PCP is Dr. Duff. The patient does not participate with dialysis. Discharge plan is for the patient to return home at the time of discharge. Family will provide transportation on behalf of the patient. Patient is aligned with [facility]. Patient confirmed plan to resume home health services upon discharge. No further intervention required at this time, hospice social worker will be available to address any further concerns. Next of Kin: Cinthya Rios D/C Plan: Home
--- NOTE | 2024-03-20 14:14 | ESPR_ITS ---
<Statement entered by Elvin Webster MD - 03/24/24 16:33> I reviewed above note and agree with findings and plans. I have also personally examined the patient with medicine team and went over assessment and plan with medical team including learning and development intern and resident physician. <Statement entered by Jael Mueller DO - 03/20/24 19:24> Senior attestation: Patient was examined and case was reviewed with team including attending physician. Note reviewed, I agree with most of its contents and agree with the patient's care. Pending neurology recommendations, EEG and physical therapy recommendations. Anticipate discharge in next 24 hours. Jael Mueller DO PGY-3 Documentation for date of: 03/20/24 Subjective Subjective Interval history: Patient seen at bedside. No acute overnight events. Patient has no complaints this morning and left upper extremity weakness has resolved. Brain MRI was done and was negative for acute infarct. Patient is currently on aspirin and Plavix. Pending echocardiogram. Venous Doppler of bilateral lower extremities was done and is negative for DVT. EEG ordered to monitor seizure activities. Anticipate discharge within 24 hours if stable. Neurology on board, appreciate recommendations. Wound care ordered for pressure ulcers, appreciate recommendations for multivitamins and zinc. Exam Vital Signs Temp Pulse Resp BP Pulse Ox O2 Del Method O2 Flow Rate 97.4 F 80 17 141/71 H 97 Room Air 0 03/20/24 12:00 03/20/24 12:00 03/20/24 12:00 03/20/24 12:00 03/20/24 12:00 03/20/24 12:00 03/20/24 12:00 Narrative Exam GENERAL: AAOX3 NEURO: 5/5 strength in bilateral upper and lower extremities, no nystagmus noted no intention tremors and no drift. On visual exam, left visual field defect noted. Left facial droop HEENT: Moist mucosa. Eyes open, symmetrical, & clear CARDIO: No chest pain on palpation. Heart RRR, no obvious murmurs PULM: No noted coughing/dyspnea. Lungs CTA B/L GI: Abdomen soft, nondistended, no pain on palpation. BSx4 URO/BULK DRIVER:: No further abnormalities noted. SKIN/MSK/EXT: No wounds/rashes/edema/amputations, no pain on palpation. Pedal pulses present B/L Objective Labs 03/20/24 05:05 03/20/24 05:05 Labs: Laboratory Results - last 24 hr 03/20/24 05:05 WBC 8.8 RBC 4.44 L Hgb 13.7 Hct 40.9 L MCV 92 MCH 30.9 MCHC 33.5 RDW Std Deviation 45.5 H Plt Count 163 Neut % (Auto) 71 Lymph % (Auto) 22 [place] % (Auto) 6 Eos % (Auto) 0 Baso % (Auto) 1 Neut # (Auto) 6.2 Lymph # (Auto) 1.9 [place] # (Auto) 0.5 Eos # (Auto) 0.0 Baso # (Auto) 0.1 Immature Gran # (Auto) 0.03 H Absolute Nucleated RBC 0.00 Immature Gran % 0 Nucleated RBC % 0 Sodium 138 Potassium 4.3 D Chloride 105 Carbon Dioxide 26.2 Anion Gap 7 BUN 17 Creatinine 1.2 Estim Creat Clear Calc 50.7 L eGFR > 60 BUN/Creatinine Ratio 14 Glucose 145 H Calculated Osmolality 280 Calcium 8.7 Corrected Calcium 8.9 Phosphorus 2.3 L Magnesium 2.0 Total Bilirubin 0.5 AST 14 ALT 10 Alkaline Phosphatase 58 Total Protein 6.1 Albumin 3.7 Globulin 2.4 Albumin/Globulin Ratio 1.5 Triglycerides 111 Cholesterol 97 L LDL Cholesterol, Calc 44 HDL Cholesterol 31 L Cholesterol/HDL Ratio 3.1 L TSH 1.04 Quality Measures Quality Measures stroke Suspected type of Stroke: Non Acute Last known well (date): 03/19/24 Last known well (time): 02:20 Tenecteplase given: Reason(s) Tenecteplase not given: Outside the time window not given Rehab services: PT evaluation ordered and Speech Language Pathology eval ordered VTE Prophylaxis: pharmaceutical Antithrombotic by day 2:: ordered Statin ordered: not ordered Anticoagulation ordered for A-fib or flutter (current or hx): not indicated Advance care planning discussed with:: patient Assessment & Plan Assessment Current Active Medications: Generic Name Dose Route Start Last Admin Trade Name Freq PRN Reason Stop Dose Admin Acetaminophen 650 mg 03/19/24 11:54 03/19/24 17:34 Acetaminophen 325 Mg Tablet PO 04/18/24 11:53 650 mg Q6H PRN Administration Pain (1-4) and Fever >101.5 Ascorbic Acid 500 mg 03/20/24 14:15 Ascorbic Acid 250 Mg Tablet PO 12/27/24 14:14 BID ISRA Aspirin 81 mg 11/28/24 09:00 Aspirin Ec 81 Mg Tabec PO 04/20/24 08:59 [facility] Clopidogrel Bisulfate 75 mg 03/21/24 09:00 Clopidogrel Bisulfate 75 Mg Tablet PO 04/20/24 08:59 [facility] Multivitamins 1 tab 03/20/24 14:15 Multivitamins Tablet PO 04/19/24 14:14 [facility] Ondansetron HCl 4 mg 03/19/24 06:59 Ondansetron Inj 2 Mg/Ml Inj 2 Ml IV 04/18/24 06:58 Q4HR PRN NAUSEA OR VOMITING Zinc Sulfate 220 mg 03/20/24 14:15 Zinc Sulfate 220 Mg Capsule PO 04/03/24 14:14 [facility] Plan Summary: The patient is an 78-year-old male with a past medical history of hypertension, type II DM, HFpEF, cellulitis and pressure ulcers who was Biba to the ED on 03/19/2024 and the patient was said to have slumped in his chair and about 02:20 this morning. was said to have called 911 and the fire department responded and sustained the patient back to bed. Patient has been admitted for acute CVA workup. #Acute CVA-ruled out #Possible TIA #Rule out seizures #Left-sided weakness-resolved The patient is an 78-year-old male with a past medical history of hypertension, type II DM, HFpEF, cellulitis and pressure ulcers who was Biba to the ED on 03/19/2024 and the patient was said to have slumped in his chair and about 02:20 this morning. was said to have called 911 and the fire department responded and sustained the patient back to bed. However at about 6:20 AM, the patient was noted to have new onset left extremity weakness with a with facial droop and slurred speech. NIHSS by teleneuro assessment was 4 with visual field cuts on the left and facial palsy and left arm motor drift. Head CT and CTA were done and CTA showed some areas of possible stenosis in the left posterior cerebral artery. Per teleneuro, the patient was recommended to be admitted for further workup with a loading dose of aspirin and Plavix. 03/20/2024- Brain MRI was done and was negative for acute infarct. Patient is currently on aspirin and Plavix. Pending echocardiogram. EEG ordered to monitor seizure activities. Anticipate discharge within 24 hours if stable. Neurology on board, appreciate recommendations. Plan: -Neurology consulted, appreciate recommendations -Continue aspirin 81 mg and Plavix 75 mg -EEG ordered -Aspiration and seizure precautions -Pending echo #History of cellulitis #Bilateral lower extremity edema The patient has bilateral pitting edema with cellulitis and said he has had it for a long time. Although chronic, will follow-up with ultrasound of bilateral extremities to rule out DVT. Venous Doppler of bilateral lower extremities was done and is negative for DVT. #Hx of DM2-ruled out ?A1c on 03/10/2024 was 5.4 Blood glucose currently within normal limits Plan: ?Accu-Cheks and hypoglycemic protocol ?Will continue to monitor #HFpEF (55%) #Hx of HTN ?Patient had ejection fraction of 55% from echo on last admission ?Currently has no shortness of breath, but does have bilateral lower extremity edema. Plan: ?Holding off on antihypertensive medication as we are allowing permissive hypertension and patient's blood pressure has been stable. 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
[2024-03-20] MEDS: ASCORBIC ACID 250 MG TABLET 500 MG PO ×2 (15:13→20:26)
[2024-03-20] MEDS: MULTIVITAMINS TABLET 1 TAB PO (15:13)
[2024-03-20] MEDS: ZINC SULFATE 220 MG CAPSULE PO (15:13)
--- NOTE | 2024-03-20 15:47 | PC.SS ---
Rounding Note: PT evaluation pending. Neurology recommendations are pending.
--- NOTE | 2024-03-20 23:43 | VVPN_ITS ---
Telemedicine visit statement This visit was conducted with the use of phone was obtained on 03/20/24 at 2343. Documentation for date of: 03/20/24 Subjective Subjective Interval history: Patient is in telemetry. No similar symptoms reported after admission. He is moving all his extremities, no weakness or paresthesias noted. Virtual exam Vital Signs Temp Pulse Resp BP Pulse Ox O2 Del Method O2 Flow Rate 97.0 F 79 15 135/72 H 96 Room Air 0 03/20/24 19:57 03/20/24 20:00 03/20/24 19:57 03/20/24 19:57 03/20/24 19:57 03/20/24 19:57 03/20/24 15:00 Objective Labs 03/20/24 05:05 03/20/24 05:05 Labs: Laboratory Results - last 24 hr 03/20/24 05:05 WBC 8.8 RBC 4.44 L Hgb 13.7 Hct 40.9 L MCV 92 MCH 30.9 MCHC 33.5 RDW Std Deviation 45.5 H Plt Count 163 Neut % (Auto) 71 Lymph % (Auto) 22 [place] % (Auto) 6 Eos % (Auto) 0 Baso % (Auto) 1 Neut # (Auto) 6.2 Lymph # (Auto) 1.9 [place] # (Auto) 0.5 Eos # (Auto) 0.0 Baso # (Auto) 0.1 Immature Gran # (Auto) 0.03 H Absolute Nucleated RBC 0.00 Immature Gran % 0 Nucleated RBC % 0 Sodium 138 Potassium 4.3 D Chloride 105 Carbon Dioxide 26.2 Anion Gap 7 BUN 17 Creatinine 1.2 Estim Creat Clear Calc 50.7 L eGFR > 60 BUN/Creatinine Ratio 14 Glucose 145 H Calculated Osmolality 280 Calcium 8.7 Corrected Calcium 8.9 Phosphorus 2.3 L Magnesium 2.0 Total Bilirubin 0.5 AST 14 ALT 10 Alkaline Phosphatase 58 Total Protein 6.1 Albumin 3.7 Globulin 2.4 Albumin/Globulin Ratio 1.5 Triglycerides 111 Cholesterol 97 L LDL Cholesterol, Calc 44 HDL Cholesterol 31 L Cholesterol/HDL Ratio 3.1 L TSH 1.04 Assessment & Plan Problem List (1) Altered mental status: Status: Acute Assessment and plan: 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 Continue with seizure precautions. (2) Diabetic neuropathy: Status: Chronic Assessment and plan: Continue to keep the diabetes under control (3) Hypertension: Status: Chronic Assessment and plan: Continue home meds (4) Hyperlipidemia: Status: Chronic Assessment and plan: Continue with statin
[2024-03-21] VITALS (9 sets, daily range): BP systolic 115–153; BP diastolic 67–86; PULSE 69–100; RESP 12–97; TEMP 36.1–36.7; O2SAT 96–98; BMI 11.0
[2024-03-21 05:49] LABS: Basophils # (Auto) 0.1 Thou/mm3 (0.0-0.2); Basophils % (Auto) 1 % (0-2.5); Eosinophils # (Auto) 0.1 Thou/mm3 (0.0-0.5); Eosinophils % (Auto) 1 % (0-10); Hematocrit 42.7 % (41.0-53.0); Hemoglobin 14.3 g/dL (13.5-16.0); Immature Granulocytes % (Auto) 0 % (0-0); Immature Granulocytes Auto 0.02 Thou/mm3 (0.00-0.00); Lymphocytes # (Auto) 2.4 Thou/mm3 (1.0-4.8); Lymphocytes % (Auto) 27 % (10-50); Mean Corpuscular HGB Conc 33.5 g/dl (31.0-37.0); Mean Corpuscular Hemoglobin 30.7 pg (25.0-35.0); Mean Corpuscular Volume 92 fL (80-100); Monocytes # (Auto) 0.6 Thou/mm3 (0.0-0.8); Monocytes % (Auto) 7 % (0-12); Neutrophils # (Auto) 5.7 Thou/mm3 (1.8-7.7); Neutrophils % (Auto) 64 % (37-80); Nucleated Red Blood Cell % 0 /100 WBC (0); Platelet Count 149 Thou/mm3 (140-440); RDW Standard Deviation 45.7 fL (35.1-43.9); Red Blood Count 4.66 Miln/mm3 (4.50-5.90); White Blood Count 8.9 Thou/mm3 (3.8-10.6)
[2024-03-21 06:13] LABS: Alanine Aminotransferase 11 U/L (10-49); Albumin, Serum 3.8 gm/dL (3.4-4.8); Albumin/Globulin Ratio 1.6 (1.2-2.2); Alkaline Phosphatase 62 U/L (46-116); Anion Gap 6 (7-16); Aspartate Amino Transferase 16 U/L (0-34); BUN/Creatinine Ratio 11 Ratio (12-20); Bilirubin,Total 0.5 mg/dL (0.3-1.2); Blood Urea Nitrogen 12 mg/dL (9-23); Calcium 8.9 mg/dL (8.3-10.6); Calcium (Corrected) 9.1 mg/dL (8.5-10.1); Carbon Dioxide 24.7 mMol/L (20.0-31.0); Chloride 106 mMol/L (98-107); Creatinine (Component) 1.1 mg/dL (0.6-1.3); Estimated Creatinine Clearance 68.5 mL/min (>60); Globulin 2.4 gm/dL (2.3-3.5); Glucose 137 mg/dL (74-106); Osmolality,Calculated 275 (275-295); Phosphorous 2.1 mg/dL (2.4-5.1); Potassium 4.3 mMol/L (3.4-5.1); Sodium 137 mMol/L (136-145); Total Protein 6.2 gm/dL (5.7-8.2); eGFR > 60 See Note
[2024-03-21] MEDS: NAPH,KPH MBDB 1 PACKET (1.5 GM) PO (09:28)
[2024-03-21] MEDS: ZINC SULFATE 220 MG CAPSULE PO (09:28)
[2024-03-21] MEDS: ASCORBIC ACID 250 MG TABLET 500 MG PO ×2 (09:29→20:40)
[2024-03-21] MEDS: MULTIVITAMINS TABLET 1 TAB PO (09:29)
[2024-03-21] MEDS: CLOPIDOGREL BISULFATE 75 MG TABLET PO (09:29)
[2024-03-21] MEDS: ASPIRIN EC 81 MG TABEC PO (09:29)
[2024-03-21] MEDS: levETIRAcetam 250 MG TABLET 500 MG PO ×2 (10:30→20:40)
--- NOTE | 2024-03-21 10:54 | ESDS_ITS ---
<Statement entered by Elvin Webster MD - 03/24/24 16:33> I reviewed above note and agree with findings and plans. I have also personally examined the patient with medicine team and went over assessment and plan with medical team including graduate internship and resident physician. <Statement entered by Jael Mueller DO - 03/21/24 14:12> Senior attestation: Patient was examined and case was reviewed with team including attending physician. Note reviewed, I agree with most of its contents and agree with the patient's care. Jael Mueller DO PGY-3 Planned Discharge Date 03/21/24 DS: Providers Provider Date of admission: 03/19/24 11:54 Primary care physician: Jose Manuel Duff MD Admitting Provider: Elvin Webster MD Attending Provider on Admission: Elvin Webster MD Consults: 03/19/24 06:59 Consult to Neurology / Tele-Neurology Routine Comment: Consulting Provider: [facility] 03/19/24 11:58 Referral Speech Therapy Stat Comment: 03/19/24 11:59 Consult to Neurology / Tele-Neurology Routine Comment: Acute CVA rule out Consulting Provider: Sarbjit Pearce Referral Physical Therapy Routine Comment: Physician Instructions: 03/19/24 23:48 Referral Wound Care Routine Comment: Instructions: readmit with stasis wounds to rayna lower legs, unable to take pics, they are wrapped and he refused, he has a IAD wounds to rayna buttocks, bleeding, i got a pic but not measured. he was yelling in pain from legs.i was able to apply an allyven 03/19/24 23:49 Referral Nutritional Services Routine Comment: 03/20/24 13:21 Referral Discharge Planning Routine Comment: Instructions: home health for wound care on discharge Attending Provider on DC: Elvin Webster MD Discharging Provider: Elvin Webster MD DS: Diagnosis Problem List Completed Was Problem List Reviewed/Reconciled?: Yes Hospital Course Hospital Course Hospital course: The patient is an 78-year-old male with a past medical history of hypertension, type II DM, HFpEF, cellulitis and pressure ulcers who was Biba to the ED on 03/19/2024 and the patient was said to have slumped in his chair and about 02:20 on morning of admission with left sided weakness. Patient was recently discharged from the hospital about 7 days ago when he presented with left facial weakness and possible seizure-like activities and was admitted for stroke workup. Patient was recently discharged from the hospital about 7 days prior when he presented with left facial weakness and possible seizure-like activities and was admitted for stroke workup. Imaging on that admission was negative and patient was discharged home on aspirin 81 mg and atorvastatin. In the ED, stroke protocol was initiated and teleneuro was consulted. NIHSS by teleneuro assessment was 4 with visual field cuts on the left and facial palsy and left arm motor drift. Head CT and CTA were done and CTA showed some areas of possible stenosis in the left posterior cerebral artery. Per teleneuro, the patient was recommended to be admitted for further workup and CVA rule out with a loading dose of aspirin and Plavix. 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 Neurology was consulted, Brain MRI/MRA was negative. EEG was ordered which was negative for seizure abnormalities but the absence of epileptiform discharge does not rule out a diagnosis of seizures. US of bilateral lower extremities was ordered due to cellulitis, to rule out DVT. Today, the patient is clinically and hemodynamically stable, weakness has resolved since admission and he is medically cleared for discharge. He has been started on Keppra 500mg twice daiy for possible seizures and recommended to follow up with his PCP within one week of discharge and neurologist Dr Pearce within two weeks. 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 #Acute CVA-ruled out #Possible TIA #History of hypertension #History of diabetes Case was discussed with senior resident Dr Mueller PGY-3 and attending physician, Dr Eleanor Rausch MD PGY-1 Status at Discharge Overall status at discharge: patient is back to baseline Time Spent with Patient Time attestation: Total time spent providing and/or coordinating discharge services:more than 30minutes Exam Vital Signs Temp Pulse Resp BP Pulse Ox O2 Del Method O2 Flow Rate 97.0 F 83 12 115/67 98 Room Air 0 03/21/24 08:00 03/21/24 09:25 03/21/24 09:25 03/21/24 08:00 03/21/24 08:00 03/21/24 08:00 03/20/24 15:00 Narrative Exam GENERAL: AAOX3 NEURO: 5/5 strength in bilateral upper and lower extremities, no nystagmus noted no intention tremors and no drift. On visual exam, left visual field defect noted. Left facial droop HEENT: Moist mucosa. Eyes open, symmetrical, & clear CARDIO: No chest pain on palpation. Heart RRR, no obvious murmurs PULM: No noted coughing/dyspnea. Lungs CTA B/L GI: Abdomen soft, nondistended, no pain on palpation. BSx4 URO/VAN OWNER OPERATOR:: No further abnormalities noted. SKIN/MSK/EXT: Bilateral edema with cellulitis, compression stockings on Discharge Plan Plan Patient Disposition: Home w/HOME HEALTH Care Plan Goals: Follow up with your PCP within one week of discharge Follow up with neurologist, Dr Pearce within two weeks of discharge Although all imaging was negative, it does not rule out a seizure episode We added an anti-seizure medication Keppra, take 500mg twice daily Continue all medications as prescribed Wound care: 1) Deep tissue injury over sacrum/bilateral buttocks: cleanse with wound cleanser, pat dry, apply allyven dressing daily *side to side repositoning with wedges except for meals 2) BLE cellulitis vs venous ulcers: cleanse with soap and water, pat dry, apply skin moisterizing cream. Adaptic. Kerlix roll than light clemente wrap from base of toes to below the knees daily. negative heel pressure bilaterally Elevate 2 pillows above heart level as tolerated. Prescriptions/Referrals Prescriptions/Med Rec: New levetiracetam [Keppra] 500 mg tablet 500 mg PO BID 14 Days Qty: 28 0RF Continued metformin [Glucophage] 1,000 MG tablet 1,000 mg PO BID Qty: 0 furosemide 40 mg tablet 40 mg PO BID Patient Comments: TAKE 1 TABLET BY MOUTH ONCE A DAY AT NOON Rx Instructions: TAKE ONE TABLET BY MOUTH AT 10AM & ONE TABLET AT 4PM metoprolol succinate 50 mg Tablet Extended Release 24 Hr 25 mg PO QDAY amlodipine-benazepril 10-40 mg capsule 1 cap PO ONCE PM Patient Comments: TAKE 1 CAPSULE BY MOUTH DAILY AT DINNER. aspirin 81 mg Tablet,Delayed Release (Dr/Ec) 81 mg PO QDAY Qty: 30 0RF atorvastatin 10 mg tablet 10 mg PO QPM Referrals: Jose Manuel Duff MD [Primary Care Provider] - Sarbjit Pearce MD [Physician] - Patient/Caregiver Discharge Instructions Discharge Activity: as per physical therapy Other Discharge Activity Instructions:: Wound care: 1) Deep tissue injury over sacrum/bilateral buttocks: cleanse with wound cleanser, pat dry, apply allyven dressing daily *side to side repositoning with wedges except for meals 2) BLE cellulitis vs venous ulcers: cleanse with soap and water, pat dry, apply skin moisterizing cream. Adaptic. Kerlix roll than light clemente wrap from base of toes to below the knees daily. negative heel pressure bilaterally Elevate 2 pillows above heart level as tolerated. Education Materials: Seizures and Epilepsy Print Language: Estonian Stand Alone Forms: [employer] Award Info., Patient Portal Info Letter Discharge Order Discharge Orders: Discharge (Routine); Ordered 03/21/24 Ordered By: Jael Mueller Quality Discharge Quality Measures VTE prophylaxis
--- NOTE | 2024-03-21 13:30 | PC.NURSE ---
During prescribed wound care, allevyn on buttock pressure injury was removed. Upon removal, the wound immediately started bleeding profusely. Pressure was immediately applied and held for approximately 15 minutes. Another RN retrieved SurgiSeal from ICU, which was applied to wound followed by folded gauze and an allevyn . Dr. Mueller and Dr. Felton notified and came to see pt at bedside. Will order repeat H&H and will monitor wound for any bleeding
--- NOTE | 2024-03-21 13:54 | PC.NURSE ---
Wound dressing checked for signs of further bleeding. No signs of bleeding at this time
[2024-03-21 14:16] LABS: Hemoglobin 13.4 g/dL (13.5-16.0)
--- NOTE | 2024-03-21 23:23 | PD.NEUROPROG ---
Documentation for date of: 03/21/24 Subjective Subjective Interval history: Patient is in telemetry with his the bedside. No seizures reported after admission. Moving all 4 extremities. Exam - Neurology Vital Signs Temp Pulse Resp BP Pulse Ox O2 Del Method O2 Flow Rate 97.5 F 80 17 153/78 H 97 Room Air 0 03/21/24 20:00 03/21/24 20:00 03/21/24 20:00 03/21/24 20:00 03/21/24 20:00 03/21/24 20:00 03/20/24 15:00 Narrative Exam GENERAL APPEARANCE: Well developed, obese built white male in no acute distress. HEENT: Normocephalic, atraumatic, extraocular movements intact. Pupils: Equal reacting to light and accommodation NECK: Supple, no JVD or bruits. CARDIOVASULAR: Heart: S1, S2 heard, regular without S3-S4 or murmur no rubs or gallops. LUNGS/CHEST: Clear to auscultation bilaterally. No rails, rhonchi, or wheezing. Normal inspection. ABDOMEN: Soft, nontender, with normal bowel sounds. No pulsatile masses. No rebound, rigidity, or guarding. Normal inspection and palpation. EXTREMITIES: Normal inspection and palpation. 3+ edema noted in both lower extremities with cellulitis, NO clubbing or cyanosis. SKIN: Warm and dry without rashes. Normal inspection. MUSCULOSKELETAL: No cervical, thoracic, lumbar or midline bony tenderness. Normal inspection. NEURO: Alert, awake and oriented x3. Cranial nerves: II through XII grossly intact. Speech and language: Normal with no dysarthria or dysphasia. Motor system: Tone and bulk: Normal: Strength: Moves all 4 extremities; No pronator drift noted. Deep tendon reflexes: 1+ bilaterally symmetrical. Plantar reflex: Downgoing bilaterally. Sensory system: Significant impairment consistent with a peripheral neuropathy. Coordination: Intact to [id number] and [id number] test bilaterally. No ataxia, no dysmetria, or dysdiadochokinesia noted. No intention tremors noted. Gait: Not tested. No signs of meningeal irritation noted. PSYCHIATRIC: Normal mood and affect. Objective Labs 03/22/24 04:42 03/22/24 04:42 Labs: Laboratory Results - last 24 hr 03/21/24 03/21/24 04:49 14:08 WBC 8.9 RBC 4.66 Hgb 14.3 13.4 L Hct 42.7 40.0 L MCV 92 MCH 30.7 MCHC 33.5 RDW Std Deviation 45.7 H Plt Count 149 Neut % (Auto) 64 Lymph % (Auto) 27 [place] % (Auto) 7 Eos % (Auto) 1 Baso % (Auto) 1 Neut # (Auto) 5.7 Lymph # (Auto) 2.4 [place] # (Auto) 0.6 Eos # (Auto) 0.1 Baso # (Auto) 0.1 Immature Gran # (Auto) 0.02 H Absolute Nucleated RBC 0.00 Immature Gran % 0 Nucleated RBC % 0 Sodium 137 Potassium 4.3 Chloride 106 Carbon Dioxide 24.7 Anion Gap 6 L BUN 12 Creatinine 1.1 Estim Creat Clear Calc 68.5 eGFR > 60 BUN/Creatinine Ratio 11 L Glucose 137 H Calculated Osmolality 275 Calcium 8.9 Corrected Calcium 9.1 Phosphorus 2.1 L Magnesium 2.0 Total Bilirubin 0.5 AST 16 ALT 11 Alkaline Phosphatase 62 Total Protein 6.2 Albumin 3.8 Globulin 2.4 Albumin/Globulin Ratio 1.6 Assessment & Plan Assessment and plan (1) Altered mental status: Status: Acute Assessment and plan: DD: Syncope/seizures CT head: Negative for acute intracranial abnormalities Echocardiogram: Normal left ventricular size with mild LVH. LVEF 60%. ?normal cardiac chamber size ?Moderate calcific? aortic valve stenosis. Vmax 242cm/s. Mean PG 13mmHg. ?trace to mild TR. Follow-up with MRI brain and EEG. Continue with seizure precautions. Additional Assessment & Plan Additional Plan: (1) Altered mental status: Resolved. 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 Follow up with EEG (2) Diabetic neuropathy: Status: Chronic Assessment and plan: Continue to keep the diabetes under control (3) Hypertension: Status: Chronic Assessment and plan: Continue home meds (4) Hyperlipidemia: Status: Chronic Assessment and plan: Continue with statin
[2024-03-22] VITALS (7 sets, daily range): BP systolic 127–157; BP diastolic 67–90; PULSE 68–87; RESP 14–96; TEMP 36–36.2; O2SAT 97–99; BMI 12.0
[2024-03-22 06:13] LABS: Basophils # (Auto) 0.1 Thou/mm3 (0.0-0.2); Basophils % (Auto) 1 % (0-2.5); Eosinophils # (Auto) 0.2 Thou/mm3 (0.0-0.5); Eosinophils % (Auto) 2 % (0-10); Hematocrit 44.9 % (41.0-53.0); Hemoglobin 14.8 g/dL (13.5-16.0); Immature Granulocytes % (Auto) 1 % (0-0); Immature Granulocytes Auto 0.04 Thou/mm3 (0.00-0.00); Lymphocytes # (Auto) 2.9 Thou/mm3 (1.0-4.8); Lymphocytes % (Auto) 35 % (10-50); Mean Corpuscular Hemoglobin 30.5 pg (25.0-35.0); Mean Corpuscular Volume 93 fL (80-100); Monocytes # (Auto) 0.6 Thou/mm3 (0.0-0.8); Monocytes % (Auto) 8 % (0-12); Neutrophils # (Auto) 4.6 Thou/mm3 (1.8-7.7); Neutrophils % (Auto) 54 % (37-80); Nucleated Red Blood Cell % 0 /100 WBC (0); Platelet Count 147 Thou/mm3 (140-440); RDW Standard Deviation 46.2 fL (35.1-43.9); Red Blood Count 4.85 Miln/mm3 (4.50-5.90); White Blood Count 8.5 Thou/mm3 (3.8-10.6)
[2024-03-22 06:41] LABS: Anion Gap 8 (7-16); BUN/Creatinine Ratio 11 Ratio (12-20); Blood Urea Nitrogen 12 mg/dL (9-23); Carbon Dioxide 26.5 mMol/L (20.0-31.0); Chloride 104 mMol/L (98-107); Creatinine (Component) 1.1 mg/dL (0.6-1.3); Potassium 4.4 mMol/L (3.4-5.1); Sodium 138 mMol/L (136-145)
[2024-03-22 06:42] LABS: Alanine Aminotransferase 10 U/L (10-49); Albumin/Globulin Ratio 1.7 (1.2-2.2); Alkaline Phosphatase 66 U/L (46-116); Aspartate Amino Transferase 16 U/L (0-34); Bilirubin,Total 0.6 mg/dL (0.3-1.2); Calcium 9.1 mg/dL (8.3-10.6); Calcium (Corrected) 9.1 mg/dL (8.5-10.1); Globulin 2.3 gm/dL (2.3-3.5); Glucose 131 mg/dL (74-106); Magnesium 2.2 mg/dL (1.6-2.6); Osmolality,Calculated 277 (275-295); Phosphorous 2.9 mg/dL (2.4-5.1); Total Protein 6.3 gm/dL (5.7-8.2); eGFR > 60 See Note
[2024-03-22] MEDS: CLOPIDOGREL BISULFATE 75 MG TABLET PO (08:46)
[2024-03-22] MEDS: ASPIRIN EC 81 MG TABEC PO (08:46)
[2024-03-22] MEDS: ASCORBIC ACID 250 MG TABLET 500 MG PO (08:46)
[2024-03-22] MEDS: levETIRAcetam 250 MG TABLET 500 MG PO (08:46)
[2024-03-22] MEDS: ZINC SULFATE 220 MG CAPSULE PO (08:46)
[2024-03-22] MEDS: MULTIVITAMINS TABLET 1 TAB PO (08:46)
--- NOTE | 2024-03-22 09:27 | PC.SS ---
Addendum entered by DIRK Lucio 03/22/24 09:30: Met with patient to discuss the discharge plan. He informs he is ready and , Cinthya to be coming by to transport him home. Patient requested worker to contact to make her aware. Notified patient's Cinthya. She is aware of discharge and coming by to see the patient now. Original Note: SS update: was informed patient did not discharge yesterday as he was kept for monitoring of wound for bleeding.
--- NOTE | 2024-03-22 13:07 | ESDS_ITS ---
<Statement entered by Elvin Webster MD - 03/24/24 16:38> I reviewed above note and agree with findings and plans. I have also personally examined the patient with medicine team and went over assessment and plan with medical team including risk management intern and resident physician. <Statement entered by Jael Mueller DO - 03/22/24 16:19> Senior attestation: Patient was examined and case was reviewed with team including attending physician. Note reviewed, I agree with most of its contents and agree with the patient's care. Additional comments as follows: Will provide surgical gauze and allyven dressing upon discharge, patient and family member bedside instructed on wound dressing and leg wrap. Advised to continue follow up with outpatient home health wound care, who may further evaluate and manage patient's chronic wound conditions. Jael Mueller DO PGY-3 Planned Discharge Date 03/22/24 DS: Providers Provider Date of admission: 03/19/24 11:54 Primary care physician: Jose Manuel Duff MD Admitting Provider: Elvin Webster MD Attending Provider on Admission: Elvin Webster MD Consults: 03/19/24 06:59 Consult to Neurology / Tele-Neurology Routine Comment: Consulting Provider: [facility] 03/19/24 11:58 Referral Speech Therapy Stat Comment: 03/19/24 11:59 Consult to Neurology / Tele-Neurology Routine Comment: Acute CVA rule out Consulting Provider: Sarbjit Pearce Referral Physical Therapy Routine Comment: Physician Instructions: 03/19/24 23:48 Referral Wound Care Routine Comment: Instructions: readmit with stasis wounds to rayna lower legs, unable to take pics, they are wrapped and he refused, he has a IAD wounds to rayna buttocks, bleeding, i got a pic but not measured. he was yelling in pain from legs.i was able to apply an allyven 03/19/24 23:49 Referral Nutritional Services Routine Comment: 03/20/24 13:21 Referral Discharge Planning Routine Comment: Instructions: home health for wound care on discharge Attending Provider on DC: Elvin Webster MD Discharging Provider: Elvin Webster MD DS: Diagnosis Problem List Completed Was Problem List Reviewed/Reconciled?: Yes Hospital Course Hospital Course Hospital course: Patient's discharge failed yesterday as patient's felt unsafe to drive during nighttime, please see patient's discharge summary below: Hospital course: Mr Rios patient is an 78-year-old male with a past medical history of hypertension, type II DM, HFpEF, cellulitis and pressure ulcers who was Biba to the ED on 03/19/2024 and the patient was said to have slumped in his chair and about 02:20 on morning of admission with left sided weakness. Patient was recently discharged from the hospital about 7 days ago when he presented with left facial weakness and possible seizure-like activities and was admitted for stroke workup. Patient was recently discharged from the hospital about 7 days prior when he presented with left facial weakness and possible seizure-like activities and was admitted for stroke workup. Imaging on that admission was negative and patient was discharged home on aspirin 81 mg and atorvastatin. In the ED, stroke protocol was initiated and teleneuro was consulted. NIHSS by teleneuro assessment was 4 with visual field cuts on the left and facial palsy and left arm motor drift. Head CT and CTA were done and CTA showed some areas of possible stenosis in the left posterior cerebral artery. Per teleneuro, the patient was recommended to be admitted for further workup and CVA rule out with a loading dose of aspirin and Plavix. 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 Neurology was consulted, Brain MRI/MRA was negative. EEG was ordered which was negative for seizure abnormalities but the absence of epileptiform discharge does not rule out a diagnosis of seizures. US of bilateral lower extremities was ordered due to cellulitis, to rule out DVT. Today, the patient is clinically and hemodynamically stable, weakness has resolved since admission and he is medically cleared for discharge. He has been started on Keppra 500mg twice daiy for possible seizures and recommended to follow up with his PCP within one week of discharge and neurologist Dr Pearce within two weeks. 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 #Acute CVA-ruled out #Possible TIA #History of hypertension #History of diabetes Case was discussed with senior resident Dr Mueller PGY-3 and attending physician, Dr Eleanor Felton PGY-1 Status at Discharge Functional status at discharge: uses cane/walker (Spends majority of day in a lift chair) Overall status at discharge: patient is progressing back to baseline Time Spent with Patient Time attestation: Total time spent providing and/or coordinating discharge services: Greater than 30 minutes Time spent: Greater than 30 minutes Exam Vital Signs Temp Pulse Resp BP Pulse Ox O2 Del Method O2 Flow Rate 96.8 F 72 14 157/68 H 99 Room Air 0 03/22/24 07:58 03/22/24 07:58 03/22/24 07:58 03/22/24 07:58 03/22/24 07:58 03/22/24 07:58 03/20/24 15:00 Narrative Exam GENERAL: AAOX3 NEURO: 5/5 strength in bilateral upper and lower extremities, no nystagmus noted no intention tremors and no drift. On visual exam, left visual field defect noted. Left facial droop HEENT: Moist mucosa. Eyes open, symmetrical, & clear CARDIO: No chest pain on palpation. Heart RRR, no obvious murmurs PULM: No noted coughing/dyspnea. Lungs CTA B/L GI: Abdomen soft, nondistended, no pain on palpation. BSx4 URO/QUARTZ MINER BLASTING:: No further abnormalities noted. SKIN/MSK/EXT: Bilateral edema with cellulitis, compression stockings on, chronic wound noted on patient's buttocks, dressing intact. Discharge Plan Plan Patient Disposition: Home w/HOME HEALTH Care Plan Goals: Follow up with your PCP within one week of discharge Follow up with neurologist, Dr Pearce within two weeks of discharge Although all imaging was negative, it does not rule out a seizure episode We added an anti-seizure medication Keppra, take 500mg twice daily Continue all medications as prescribed Wound care: 1) Deep tissue injury over sacrum/bilateral buttocks: cleanse with wound cleanser, pat dry, apply allyven dressing daily *side to side repositoning with wedges except for meals 2) BLE cellulitis vs venous ulcers: cleanse with soap and water, pat dry, apply skin moisterizing cream. Adaptic. Kerlix roll than light clemente wrap from base of toes to below the knees daily. negative heel pressure bilaterally Elevate 2 pillows above heart level as tolerated. Prescriptions/Referrals Prescriptions/Med Rec: New levetiracetam [Keppra] 500 mg tablet 500 mg PO BID 14 Days Qty: 28 0RF Continued metformin [Glucophage] 1,000 MG tablet 1,000 mg PO BID Qty: 0 furosemide 40 mg tablet 40 mg PO BID Patient Comments: TAKE 1 TABLET BY MOUTH ONCE A DAY AT NOON Rx Instructions: TAKE ONE TABLET BY MOUTH AT 10AM & ONE TABLET AT 4PM metoprolol succinate 50 mg Tablet Extended Release 24 Hr 25 mg PO QDAY amlodipine-benazepril 10-40 mg capsule 1 cap PO ONCE PM Patient Comments: TAKE 1 CAPSULE BY MOUTH DAILY AT DINNER. aspirin 81 mg Tablet,Delayed Release (Dr/Ec) 81 mg PO QDAY Qty: 30 0RF atorvastatin 10 mg tablet 10 mg PO QPM Referrals: Jose Manuel Duff MD [Primary Care Provider] - Sarbjit Pearce MD [Physician] - Patient/Caregiver Discharge Instructions Discharge Activity: as per physical therapy Other Discharge Activity Instructions:: Wound care: 1) Deep tissue injury over sacrum/bilateral buttocks: cleanse with wound cleanser, pat dry, apply allyven dressing daily *side to side repositoning with wedges except for meals 2) BLE cellulitis vs venous ulcers: cleanse with soap and water, pat dry, apply skin moisterizing cream. Adaptic. Kerlix roll than light clemente wrap from base of toes to below the knees daily. negative heel pressure bilaterally Elevate 2 pillows above heart level as tolerated. Education Materials: Wound Care, Seizures and Epilepsy Print Language: Greek Stand Alone Forms: Ailyn Award Info., Patient Portal Info Letter Discharge Order Discharge Orders: Discharge (Routine); Ordered 03/22/24 Ordered By: Jael Mueller Quality Discharge Quality Measures VTE prophylaxis
--- NOTE | 2024-03-22 15:41 | PC.NURSE ---
Patients at bedside to educate about wound care. shown how to perform wound care and given extra copies of wound care instructions to follow at home. felt uneasy about the bleeding from the sacral/coccyx pressure injury, Dr. Mueller at bedside to help make sure all concerns were addressed. verbalized understanding of all wound care and feels comfortable continuing the care at home. Supplies sent home with and home health will follow up. Patient preferred to sign for discharge instructions and verbalized he is ok with her signing. Both patient and verbalized understanding of follow up appointments. CHF and stroke packets given with discharge instructions.
--- NOTE | 2024-03-22 15:50 | PC.NURSE ---
stated that she will be able to machine operator picker new medication, dustinra, after discharge.
--- NOTE | 2024-03-22 23:47 | VVPN_ITS ---
Telemedicine visit statement This visit was conducted with the use of phone was obtained on 03/22/24. Documentation for date of: 03/22/24 Subjective Subjective Interval history: Patient is in telemetry. No similar symptoms reported after admission. He is moving all his extremities, no weakness or paresthesias noted. Virtual exam Vital Signs Temp Pulse Resp BP Pulse Ox O2 Del Method O2 Flow Rate 97.1 F 68 20 128/90 H 98 Room Air 0 03/22/24 15:45 03/22/24 15:45 03/22/24 15:45 03/22/24 15:45 03/22/24 15:45 03/22/24 15:45 03/22/24 12:00 Objective Labs 03/22/24 04:42 03/22/24 04:42 Labs: Laboratory Results - last 24 hr 03/22/24 04:42 WBC 8.5 RBC 4.85 Hgb 14.8 Hct 44.9 MCV 93 MCH 30.5 MCHC 33.0 RDW Std Deviation 46.2 H Plt Count 147 Neut % (Auto) 54 Lymph % (Auto) 35 [place] % (Auto) 8 Eos % (Auto) 2 Baso % (Auto) 1 Neut # (Auto) 4.6 Lymph # (Auto) 2.9 [place] # (Auto) 0.6 Eos # (Auto) 0.2 Baso # (Auto) 0.1 Immature Gran # (Auto) 0.04 H Absolute Nucleated RBC 0.00 Immature Gran % 1 H Nucleated RBC % 0 Sodium 138 Potassium 4.4 Chloride 104 Carbon Dioxide 26.5 Anion Gap 8 BUN 12 Creatinine 1.1 Estim Creat Clear Calc 68.0 eGFR > 60 BUN/Creatinine Ratio 11 L Glucose 131 H Calculated Osmolality 277 Calcium 9.1 Corrected Calcium 9.1 Phosphorus 2.9 Magnesium 2.2 Total Bilirubin 0.6 AST 16 ALT 10 Alkaline Phosphatase 66 Total Protein 6.3 Albumin 4.0 Globulin 2.3 Albumin/Globulin Ratio 1.7 Assessment & Plan Problem List (1) Altered mental status: Status: Acute Assessment and plan: 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 stable for discharge home and no driving until neurology clears. (2) Diabetic neuropathy: Status: Chronic Assessment and plan: Continue to keep the diabetes under control (3) Hypertension: Status: Chronic Assessment and plan: Continue home meds (4) Hyperlipidemia: Status: Chronic Assessment and plan: Continue with statin
--- NOTE | 2024-03-23 11:19 | PC.CM ---
Addendum entered by Lynette Rolle RN 03/23/24 18:25: HH referral sent on [facility]. Awaiting responses. Pending Start of care date. Addendum entered by Lynette Rolle RN 03/23/24 11:33: Informed Dr. Webster need HH orders. Original Note: Per Kalpesh DEGROOT notes patient is aligned with [facility].
--- NOTE | 2024-03-25 11:07 | PC.CM ---
Jenny ZAVALA accepted the pt. Booked Jenny. Resume of care date is -03/26.
== END 2024-03-22 15:46 | disposition home health service (06) ==
LOC: SERX 10:07 → S2NX 03-20 08:44 → SERHOLD 03-20 16:11 → S2NX 03-20 16:11
PROVIDERS: Admitting Provider Internal Medicine; Emergency Provider Emergency Medicine; PCP Family Medicine; Visit Provider Internal Medicine
DX: G40.909 Epilepsy, unspecified, not intractable, without status epilepticus (principal); G93.41 Metabolic encephalopathy; E78.5 Hyperlipidemia, unspecified; E11.9 Type 2 diabetes mellitus without complications; I11.0 Hypertensive heart disease with heart failure; R47.1 Dysarthria and anarthria; I67.82 Cerebral ischemia; M19.90 Unspecified osteoarthritis, unspecified site; I50.32 Chronic diastolic (congestive) heart failure; G83.84 Todd's paralysis (postepileptic); G51.0 Bell's palsy; E78.00 Pure hypercholesterolemia, unspecified; E66.9 Obesity, unspecified; E11.42 Type 2 diabetes mellitus with diabetic polyneuropathy; I69.354 Hemiplegia and hemiparesis following cerebral infarction affecting left non-dominant side; L03.116 Cellulitis of left lower limb; L03.115 Cellulitis of right lower limb; L89.156 Pressure-induced deep tissue damage of sacral region; L89.326 Pressure-induced deep tissue damage of left buttock; L89.316 Pressure-induced deep tissue damage of right buttock; Z68.36 Body mass index [BMI] 36.0-36.9, adult; Z01.810 Encounter for preprocedural cardiovascular examination; I08.0 Rheumatic disorders of both mitral and aortic valves; I07.1 Rheumatic tricuspid insufficiency
CPT/HCPCS: 93312; 36415; 70450; 70496; 70498; 70544; 80053; 80061; 80307; 80320; 81001; 83735; 84100; 84443; 84484; 85014; 85018; 85025; 85610; 85730; 87081; 87086; 92610; 93005; 93306; 93970; 95816; 97162; 99291; A4649; G0378; J7030; Q9967; A9270; G0480

== ENCOUNTER → 2024-06-17 | Outpatient (CLI) | payer OTHER, SELFPAY | END | disposition home or self-care (01) | LOC: SLDO 14:32 | PROVIDERS: Referring Provider Surgery; Visit Provider Surgery | DX: E11.628 Type 2 diabetes mellitus with other skin complications (principal); L97.921 Non-pressure chronic ulcer of unspecified part of left lower leg limited to breakdown of skin | CPT/HCPCS: 87070; 87075; 87077; 87101; 87186; 87205 ==

== ENCOUNTER → 2024-06-17 | Outpatient (CLI) | payer OTHER, SELFPAY | END | disposition home or self-care (01) | LOC: SWHD 08:54 | PROVIDERS: PCP Family Medicine; Referring Provider Family Medicine; Visit Provider Surgery | DX: L89.312 Pressure ulcer of right buttock, stage 2 (principal); S81.802A Unspecified open wound, left lower leg, initial encounter; S81.801A Unspecified open wound, right lower leg, initial encounter; X58.XXXA Exposure to other specified factors, initial encounter; E11.40 Type 2 diabetes mellitus with diabetic neuropathy, unspecified; E78.5 Hyperlipidemia, unspecified; I11.0 Hypertensive heart disease with heart failure; R56.9 Unspecified convulsions | CPT/HCPCS: 97597; 97598 ×17; 99213; A9270; G0463 ==

== ENCOUNTER → 2024-07-01 | Outpatient (CLI) | payer OTHER, SELFPAY | END | disposition home or self-care (01) | PROVIDERS: PCP Family Medicine; Referring Provider Family Medicine; Visit Provider Surgery | DX: L89.152 Pressure ulcer of sacral region, stage 2 (principal); S81.802A Unspecified open wound, left lower leg, initial encounter; S81.801A Unspecified open wound, right lower leg, initial encounter; X58.XXXA Exposure to other specified factors, initial encounter; E11.40 Type 2 diabetes mellitus with diabetic neuropathy, unspecified; E78.5 Hyperlipidemia, unspecified; I11.0 Hypertensive heart disease with heart failure; R56.9 Unspecified convulsions | CPT/HCPCS: 29581 ==

== ENCOUNTER → 2024-07-15 | Outpatient (CLI) | payer OTHER, SELFPAY | END | disposition home or self-care (01) | LOC: SWHD 10:32 | PROVIDERS: PCP Family Medicine; Referring Provider Family Medicine; Visit Provider Student in an Organized Health Care Education/Training Program | DX: L89.322 Pressure ulcer of left buttock, stage 2 (principal); L89.312 Pressure ulcer of right buttock, stage 2; S81.802A Unspecified open wound, left lower leg, initial encounter; S81.801A Unspecified open wound, right lower leg, initial encounter; X58.XXXA Exposure to other specified factors, initial encounter; E11.40 Type 2 diabetes mellitus with diabetic neuropathy, unspecified; E78.5 Hyperlipidemia, unspecified; I11.0 Hypertensive heart disease with heart failure; R56.9 Unspecified convulsions; R60.0 Localized edema | CPT/HCPCS: 17250; A9270 ==

== ENCOUNTER → 2024-07-31 | Outpatient (CLI) | payer OTHER, SELFPAY | END | disposition home or self-care (01) | LOC: SWHD 10:33 | PROVIDERS: PCP Family Medicine; Referring Provider Family Medicine; Visit Provider Student in an Organized Health Care Education/Training Program | DX: L89.312 Pressure ulcer of right buttock, stage 2 (principal); S81.802A Unspecified open wound, left lower leg, initial encounter; S81.801A Unspecified open wound, right lower leg, initial encounter; X58.XXXA Exposure to other specified factors, initial encounter; E11.40 Type 2 diabetes mellitus with diabetic neuropathy, unspecified; E78.5 Hyperlipidemia, unspecified; I11.0 Hypertensive heart disease with heart failure; R56.9 Unspecified convulsions; R60.0 Localized edema | CPT/HCPCS: 29581 ==

== ENCOUNTER 2024-08-09 11:09 | Emergency (ER) | payer OTHER, SELFPAY ==
[2024-08-09 11:49] VITALS: PULSE 75; RESP 16; O2SAT 100; BMI 38.0
[2024-08-09 11:54] VITALS: BP 135/83; PULSE 51; RESP 20; TEMP 36.4; O2SAT 96
--- NOTE | 2024-08-09 12:52 | XR_ITS ---
Examination: Venous duplex lower extremity sonogram, bilateral. Date and time of exam: August 09, 2024 1504 hours INDICATIONS: Bilateral leg swelling beginning one year ago Technique: Multiple sonographic images of the deep venous system have been obtained. B-mode/2-D grayscale imaging of vascular structures and Doppler spectral analysis (waveforms) and color performed Both legs are examined. Findings: Deep venous systems do not demonstrate abnormal echogenicity. All visualized deep veins exhibit compressibility. All visualized deep veins exhibit augmentation. Impression: Negative for deep vein thrombosis
--- NOTE | 2024-08-09 12:53 | XR_ITS ---
Examination: AP chest single view TECHNIQUE: AP portable semiupright chest single view Exam date and time: August 09, 2024 1320 hours Comparison September 19, 2023 INDICATIONS: Shortness of breath today. FINDINGS: Normal heart size Mild elevation right hemidiaphragm. No pneumonia or pulmonary edema Prominent osteopenia IMPRESSION: No pneumonia or pulmonary edema
--- NOTE | 2024-08-09 12:53 | EKG_ITS ---
[facility] Test Date: 2024-08-09 Pat Name: JEFF BUSTAMANTE Department: Room: - Gender: Male Director Staffing: : 1945 Requested By: Dalton Cosby Order Number: [id number] Reading MD: Dalton Cosby Measurements Intervals [place] Rate: 50 P: MS: QRS: 3 QRSD: 96 T: 16 QT: 453 QTc: 413 Interpretive Statements SINUS RHYTHM WITH HIGH GRADE AV BLOCK CRITICAL TEST RESULT Compared to ECG 03/19/2024 07:48:04 Left-axis deviation no longer present Left bundle-branch block no longer present /store/S0/[id number]/[id number].pdf
--- NOTE | 2024-08-09 13:07 | PD.EDSKIN ---
ED Skin Abcess FB-RME/HPI General Chief complaint: Skin/Abscess/Foreign Body Stated complaint: FLUID OVERLOAD Time Seen by Provider: 08/09/24 12:16 Arrival date/time: 08/09/24 11:09 RME / HPI RME / HPI narrative: 79 year old male with history of TIA, HFpEF 55-60% 02/2024, hypertension, diabetes presents to the ED for progressively worsening lower extremity edema over the last 2 to 3 months. The patient reports that the edema has now led to skin breakdown on the dorsum of his right foot, which is concerning to him. He has been followed by his PCP Dr. Borden for management of his CHF and on 40mg Lasix QDAY for his CHF . Recently seen about 2 weeks ago and Lasix was increased from 40 mg QDAY to 40 mg BID. Denies orthopnea, shortness of breath, or chest pain but reports experiencing dyspnea on exertion. He also notes that he sleeps in a recliner due to chronic back and hip pain. Denies any fevers or chills. Related Data Home Medications ?Medication ?Instructions ?Recorded ?Confirmed metformin 1,000 mg tablet 1,000 mg PO BID #0 tabs 11/30/13 08/09/24 (Glucophage) metoprolol succinate 50 mg 25 mg PO QDAY 04/26/18 08/09/24 tablet,extended release 24 hr furosemide 40 mg tablet 40 mg PO BID 08/25/21 03/19/24 amlodipine 10 mg-benazepril 40 mg 1 cap PO ONCE PM 03/10/24 08/09/24 capsule atorvastatin 10 mg tablet 10 mg PO QPM 03/19/24 08/09/24 atorvastatin 40 mg tablet 40 mg PO QPM 08/09/24 08/09/24 Previous Rx's ?Medication ?Instructions ?Recorded aspirin 81 mg tablet,delayed 81 mg PO QDAY #30 tabs 03/12/24 release Allergies Allergy/AdvReac Type Severity Reaction Status Date / Time No Known Allergies Allergy Verified 12/01/22 13:55 Review of Systems Review of Systems Narrative Review of Systems: Gen: No fever, no chills, no weight loss EYES: No discharge, no visual changes, no pain HEENT: No ear pain, no congestion, no sore throat PULM: no shortness of breath, no cough, no congestion CV: No chest pain, +dyspnea on exertion, no palpitations, no chest tightness GI: No nausea, no vomiting, no diarrhea, no pain, no constipation : No frequency, no urgency,? no dysuria Musc/skel: No joint pain, no back pain, +lower extremity edema Skin: No rash, no ecchymosis, no lesions Neuro: No weakness, no headache Past Medical History Past Medical History NEUROLOGIC: Positive Peripheral Neuropathy and Spinal Cord Injury CARDIAC: Positive Cardiac Disorders, Hypercholesterolemia, Congestive Heart Failure, Cellulitis and Hypertension RESPIRATORY: Positive Smoking (QUIT 1968.) GASTROINTESTINAL: Positive Obesity GENITOURINARY: Positive Benign Prostatic Hyperplasia MUSCULOSKELETAL: Positive Arthritis and Degenerative Disk Disease ENDOCRINE: Positive Endocrine Disorders and Diabetes Mellitus Type 2 OTHER HISTORY: Positive Blood Transfusions, Chicken Pox, Measles and Mumps Family History FAMILY HISTORY: Positive Family Cardiac Disorders and Family Surgery Surgical History SURGICAL: Positive Joint Replacement Social History SMOKING STATUS: Never smoker SUBSTANCE USE: does not use ED Exam Narrative Physical exam: GENERAL APPEARANCE: AxOx4, no obvious distress, chronically ill appearing, no respiratory distress HEENT: NC, AT. MMM. EOMI, clear conjunctiva, oropharynx clear. NECK: Supple without lymphadenopathy. No stiffness or restricted ROM. HEART: Normal rate and regular rhythm, normal S1/S1, no m/r/g LUNGS: CTAB, moving air well. No crackles or wheezes are heard. ABDOMEN: Soft, nontender, nondistended with good bowel sounds heard. BACK: No midline C/T/L spine pain or deformity, No CVAT, no obvious deformity. EXTREMITIES: Without cyanosis or clubbing. 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 MUSCULOSKELETAL: FROM of all major joints, no chest tenderness NEUROLOGICAL: Grossly nonfocal. Alert and oriented, moving all 4 extremities. CN not formally tested but appear grossly intact. Skin: Warm and dry without any rash. Course Course Course Narrative: 1602: Advised patient to cut back on prescribed diuretics from twice a day, to once a day for the next 2 days, due to mild kidney injury. Quality Measures none Orders Category Date Time Status EKG (ED ONLY) *Do not use* NOW Care 08/09/24 12:53 Completed EKG (ED ONLY) *Do not use* NOW Care 08/09/24 15:46 Completed EKG (ED Only) Stat Exams 08/09/24 12:53 Draft EKG (ED Only) Stat Exams 08/09/24 15:46 Draft US venous doppler LE BI Stat Exams 08/09/24 12:52 Completed XR chest 1V Stat Exams 08/09/24 12:53 Completed BNP [B-Type Natriuretic Peptide] Stat Lab 08/09/24 13:01 Completed CBC Stat Lab 08/09/24 13:01 Completed CMP [Comprehensive Metabolic Panel] Stat Lab 08/09/24 13:01 Completed Furosemide Inj [Lasix Inj] Med 08/09/24 14:17 Discontinued 40 mg IVP X1 ONE Vital Signs Vital signs: Vital Signs Temperature 97.5 F 08/09/24 11:54 Pulse Rate 51 L 08/09/24 11:54 Respiratory Rate 20 08/09/24 11:54 Blood Pressure 135/83 H 08/09/24 11:54 Pulse Oximetry (%) 96 08/09/24 11:54 Oxygen Delivery Method Room Air 08/09/24 11:54 Pulse ox is 96% on room air which is adequate. Procedures -ED EKG Interpretation #1: Date of EK08/09/24 Time of EK:54 Rate: 50 Interpretation: Interpreted by me Additional EKG comment: Bradycardic sinus rhythm, HR 50, normal axis, normal interval, no acute ST or T-wave changes, no STEMI. Skin / Abscess / Foreign Body MDM Narrative MDM Narrative:: Mr. Rios presents to the emergency department with concerns for lower extremity swelling on physical exam is consistent with lymphedema. He does not exhibit subjective symptoms which would suggest a CHF exacerbation, no shortness of breath or orthopnea. On the review of the electronic medical record echocardiogram was done for a stroke workup which shows a preserved EF. He is on rather high dose diuretics, 80 mg of furosemide daily, therefore laboratory testing was sent to assess for signs of hypokalemia and or renal dysfunction. He does have a mild kidney injury and I have advised him to start to titrate down his diuretics I believe his lymphedema would be better treated with wound care/compression stockings, and ambulation/physical therapy. He has a follow-up with his wound care doctor on Monday and will discuss with him more aggressive care with compression wraps/stocking. IDeidra, am scribing for and in the presence of Dr. Cosby. Patient data External records reviewed:: [facility] previous records (I reviewed admission from 03/19/2024 through 03/23/2024. I reviewed echo performed 02/2024 during admission showing preserved ejection fraction. ) and EMS form Clinical information provided by:: patient and EMS Social determinants that could affect healthcare access:: none Patient has the following chronic illnesses:: TIA, HFpEF 55-60% 02/2024, hypertension, diabetes How is presenting disease/condition affected by chronic disease/condition?: exacerbated by Evaluation data The following diagnostics were reviewed and interpreted by me:: lab results, radiology exam(s) and EKG tracing(s) (see interpretation under the procedures tab) Lab and/or radiology exams considered but not ordered:: None Interpretation Summary: RADIOLOGY Examination: AP chest single view Exam date and time: August 09, 2024 1320 hours Comparison September 19, 2023 INDICATIONS: Shortness of breath today. FINDINGS:Normal heart size Mild elevation right hemidiaphragm. No pneumonia or pulmonary edema Prominent osteopenia IMPRESSION:No pneumonia or pulmonary edema Dictated By:Sergei Vo MD Signed By:<Electronically signed by Sergei Vo MD in [place]>08/09/24 1326 Examination: Venous duplex lower extremity sonogram, bilateral. Date and time of exam: August 09, 2024 1504 hours INDICATIONS: Bilateral leg swelling beginning one year ago Findings: Deep venous systems do not demonstrate abnormal echogenicity. All visualized deep veins exhibit compressibility. All visualized deep veins exhibit augmentation. Impression: Negative for deep vein thrombosis Dictated By: Sergei Vo MD Signed By: Electronically signed by Sergei Vo MD in [place] 08/09/24 1539 Medications / Prescriptions Medications or Prescriptions considered but not ordered:: None Medication administrations:: Medication Administration History Discontinued Medications Furosemide (Furosemide Inj 10 Mg/Ml 4ml Vial) 40 mg IVP X1 ONE Stop: 08/09/24 14:18 Last Admin: 08/09/24 14:36 Dose: 40 mg Documented By: VG See above Consultations Consultation(s) initiated? (list below): No Diagnosis Skin/Abscess Differential Diagnosis: abscess of skin or subcutaneous tissue, cellulitis and contact dermatitis Most likely diagnosis given after review of the tests above:: Lymphedema Admission Indicated Admission indicated?: not indicated Admission Request Was there a request for admission?: No Disposition Plan Disposition Plan: Discharge Discharge Attestation Discharge Attestation: The patient and all family members were given an opportunity to ask questions and understood the discharge instructions. Discharge instructions specifically effects, indications for sooner follow up or return to the emergency department, and the expected course of current diagnosis. Patient condition: Stable Discharge Plan Plan Patient Disposition: HOME (Self Care) Prescriptions/Referrals Prescriptions/Med Rec: No Action metformin [Glucophage] 1,000 MG tablet 1,000 mg PO BID Qty: 0 furosemide 40 mg tablet 40 mg PO BID Patient Comments: TAKE 1 TABLET BY MOUTH ONCE A DAY AT NOON Rx Instructions: TAKE ONE TABLET BY MOUTH AT 10AM & ONE TABLET AT 4PM metoprolol succinate 50 mg Tablet Extended Release 24 Hr 25 mg PO QDAY amlodipine-benazepril 10-40 mg capsule 1 cap PO ONCE PM Patient Comments: TAKE 1 CAPSULE BY MOUTH DAILY AT DINNER. aspirin 81 mg Tablet,Delayed Release (Dr/Ec) 81 mg PO QDAY Qty: 30 0RF atorvastatin 10 mg tablet 10 mg PO QPM atorvastatin 40 mg tablet 40 mg PO QPM Referrals: Jose Manuel Duff MD [Primary Care Provider] - In 1 week Problem List Clinical Impression: Lymphedema Patient/Caregiver Discharge Instructions Education Materials: ED Leg Swelling in Both Legs Additional Instructions: Cut your lasix/furosemide down to once/day for the next 2 days and follow-up with your primary doctor. Continue with wound care and compression wrapping. You can return to the emergency department sooner if symptoms worsen or for any new or concerning issues. Print Language: Polish Stand Alone Forms: Ailyn Award Info., Patient Portal Info Letter
[2024-08-09 13:28] LABS: Basophils # (Auto) 0.1 Thou/mm3 (0.0-0.2); Basophils % (Auto) 1 % (0-2.5); Eosinophils # (Auto) 0.2 Thou/mm3 (0.0-0.5); Eosinophils % (Auto) 2 % (0-10); Hematocrit 43.8 % (41.0-53.0); Hemoglobin 14.5 g/dL (13.5-16.0); Immature Granulocytes % (Auto) 0 % (0-0); Immature Granulocytes Auto 0.01 Thou/mm3 (0.00-0.00); Lymphocytes # (Auto) 2.7 Thou/mm3 (1.0-4.8); Lymphocytes % (Auto) 35 % (10-50); Mean Corpuscular HGB Conc 33.1 g/dl (31.0-37.0); Mean Corpuscular Hemoglobin 30.4 pg (25.0-35.0); Mean Corpuscular Volume 92 fL (80-100); Monocytes # (Auto) 0.5 Thou/mm3 (0.0-0.8); Monocytes % (Auto) 6 % (0-12); Neutrophils # (Auto) 4.2 Thou/mm3 (1.8-7.7); Neutrophils % (Auto) 55 % (37-80); Nucleated Red Blood Cell % 0 /100 WBC (0); Platelet Count 158 Thou/mm3 (140-440); RDW Standard Deviation 44.3 fL (35.1-43.9); Red Blood Count 4.77 Miln/mm3 (4.50-5.90); White Blood Count 7.6 Thou/mm3 (3.8-10.6)
[2024-08-09 13:48] LABS: Alanine Aminotransferase 12 U/L (10-49); Albumin, Serum 4.2 gm/dL (3.4-4.8); Albumin/Globulin Ratio 1.5 (1.2-2.2); Alkaline Phosphatase 83 U/L (46-116); Anion Gap 7 (7-16); Aspartate Amino Transferase 16 U/L (0-34); BUN/Creatinine Ratio 17 Ratio (12-20); Bilirubin,Total 0.3 mg/dL (0.3-1.2); Blood Urea Nitrogen 24 mg/dL (9-23); Calcium 9.2 mg/dL (8.3-10.6); Calcium (Corrected) 9.2 mg/dL (8.5-10.1); Carbon Dioxide 29.4 mMol/L (20.0-31.0); Chloride 103 mMol/L (98-107); Creatinine (Component) 1.4 mg/dL (0.6-1.3); Estimated Creatinine Clearance 53.8 mL/min (>60); Globulin 2.8 gm/dL (2.3-3.5); Glucose 144 mg/dL (74-106); Osmolality,Calculated 284 (275-295); Potassium 4.3 mMol/L (3.4-5.1); Sodium 139 mMol/L (136-145); eGFR 50 See Note
[2024-08-09 14:06] LABS: B-Type Natriuretic Peptide 58 pg/mL (0-100)
[2024-08-09 14:36] VITALS: BP 130/57; PULSE 50
[2024-08-09] MEDS: FUROSEMIDE INJ 10 MG/ML 4ML VIAL 40 MG IVP (14:36)
--- NOTE | 2024-08-09 15:46 | EKG_ITS ---
[facility] Test Date: 2024-08-09 Pat Name: JEFF BUSTAMANTE Department: Room: - Gender: Male Cell Reliner: : 1945 Requested By: Dalton Cosby Order Number: [id number] Reading MD: Dalton Cosby Measurements Intervals [place] Rate: 56 P: 28 WA: 170 QRS: -1 QRSD: 99 T: 27 QT: 440 QTc: 426 Interpretive Statements SINUS BRADYCARDIA Compared to ECG 08/09/2024 14:54:01 Sinus rhythm no longer present /[id number]
[2024-08-09 16:00] VITALS: BP 146/57; PULSE 54; RESP 16; TEMP 36.6; O2SAT 94
[2024-08-09 17:30] VITALS: BP 135/60; PULSE 55; RESP 16; TEMP 36.6; O2SAT 94
== END 2024-08-09 17:31 | disposition home or self-care (01) ==
PROVIDERS: Emergency Provider Emergency Medicine; PCP Family Medicine
DX: I89.0 Lymphedema, not elsewhere classified (principal); I11.0 Hypertensive heart disease with heart failure; I50.32 Chronic diastolic (congestive) heart failure; E11.9 Type 2 diabetes mellitus without complications
CPT/HCPCS: 36415; 71045; 80053; 83880; 85025; 93005; 93970; 99284; J1938

== ENCOUNTER → 2024-08-19 | Outpatient (CLI) | payer OTHER, SELFPAY | END | disposition home or self-care (01) | LOC: SWHD 10:59 | PROVIDERS: PCP Family Medicine; Referring Provider Family Medicine; Visit Provider Student in an Organized Health Care Education/Training Program | DX: L89.312 Pressure ulcer of right buttock, stage 2 (principal); L89.322 Pressure ulcer of left buttock, stage 2; S81.802A Unspecified open wound, left lower leg, initial encounter; S81.801A Unspecified open wound, right lower leg, initial encounter; X58.XXXA Exposure to other specified factors, initial encounter; E11.40 Type 2 diabetes mellitus with diabetic neuropathy, unspecified; E78.5 Hyperlipidemia, unspecified; I11.0 Hypertensive heart disease with heart failure; R60.0 Localized edema | CPT/HCPCS: 97597 ==

== ENCOUNTER → 2024-08-26 | Outpatient (CLI) | payer OTHER, SELFPAY | END | disposition home or self-care (01) | LOC: SWHD 10:58 | PROVIDERS: PCP Family Medicine; Referring Provider Family Medicine; Visit Provider Student in an Organized Health Care Education/Training Program | DX: L89.312 Pressure ulcer of right buttock, stage 2 (principal); L89.322 Pressure ulcer of left buttock, stage 2; S81.802A Unspecified open wound, left lower leg, initial encounter; S81.801A Unspecified open wound, right lower leg, initial encounter; X58.XXXA Exposure to other specified factors, initial encounter; E11.40 Type 2 diabetes mellitus with diabetic neuropathy, unspecified; E78.5 Hyperlipidemia, unspecified; I11.0 Hypertensive heart disease with heart failure; R60.0 Localized edema | CPT/HCPCS: 29581 ==

== ENCOUNTER → 2024-08-29 | Outpatient (CLI) | payer OTHER, SELFPAY ==
[2024-08-29 14:25] LABS: Basophils # (Auto) 0.1 Thou/mm3 (0.0-0.2); Basophils % (Auto) 1 % (0-2.5); Eosinophils # (Auto) 0.2 Thou/mm3 (0.0-0.5); Eosinophils % (Auto) 2 % (0-10); Hematocrit 44.2 % (41.0-53.0); Hemoglobin 14.3 g/dL (13.5-16.0); Immature Granulocytes % (Auto) 0 % (0-0); Immature Granulocytes Auto 0.02 Thou/mm3 (0.00-0.00); Lymphocytes % (Auto) 40 % (10-50); Mean Corpuscular HGB Conc 32.4 g/dl (31.0-37.0); Mean Corpuscular Volume 93 fL (80-100); Monocytes # (Auto) 0.5 Thou/mm3 (0.0-0.8); Monocytes % (Auto) 6 % (0-12); Neutrophils # (Auto) 3.8 Thou/mm3 (1.8-7.7); Neutrophils % (Auto) 51 % (37-80); Nucleated Red Blood Cell % 0 /100 WBC (0); Platelet Count 136 Thou/mm3 (140-440); RDW Standard Deviation 45.5 fL (35.1-43.9); Red Blood Count 4.77 Miln/mm3 (4.50-5.90); White Blood Count 7.5 Thou/mm3 (3.8-10.6)
[2024-08-29 14:38] LABS: Glucose Estimated Average 114 mg/dL (80-131); Hemoglobin A1C 5.6 % Hgb (4.8-6.0)
[2024-08-29 14:45] LABS: Alanine Aminotransferase 13 U/L (10-49); Albumin, Serum 4.1 gm/dL (3.4-4.8); Alkaline Phosphatase 84 U/L (46-116); Anion Gap 7 (7-16); Aspartate Amino Transferase 15 U/L (0-34); BUN/Creatinine Ratio 24 Ratio (12-20); Bilirubin,Direct 0.2 mg/dL (0.0-0.3); Bilirubin,Total 0.5 mg/dL (0.3-1.2); Blood Urea Nitrogen 33 mg/dL (9-23); Calcium 8.4 mg/dL (8.3-10.6); Carbon Dioxide 27.3 mMol/L (20.0-31.0); Cardiac Risk Estimate 3.5 RATIO (4.0-6.7); Chloride 105 mMol/L (98-107); Cholesterol 116 mg/dL (132-200); Creatinine (Component) 1.4 mg/dL (0.6-1.3); Glucose 116 mg/dL (74-106); HDL Cholesterol 33 mg/dL (40-60); LDL Cholesterol,Calculated 59 mg/dL (0-130); Osmolality,Calculated 285 (275-295); Potassium 4.7 mMol/L (3.4-5.1); Sodium 139 mMol/L (136-145); Total Protein 6.5 gm/dL (5.7-8.2); Triglycerides 122 mg/dL (30-150); eGFR 50 See Note
[2024-08-29 15:02] LABS: Creatinine MALB Rnd Ur 123 mg/dL (30-125); Microalbumin Creat Ratio 59 mg/gCrea (<30); Microalbumin, Random Urine 72 mg/L (0-300)
== END | disposition home or self-care (01) ==
PROVIDERS: PCP Family Medicine; Referring Provider Family Medicine; Visit Provider Family Medicine
DX: E11.40 Type 2 diabetes mellitus with diabetic neuropathy, unspecified (principal); I10 Essential (primary) hypertension
CPT/HCPCS: 36415; 80048; 80061; 80076; 82043; 82570; 83036; 85025

== ENCOUNTER → 2024-09-02 | Outpatient (CLI) | payer OTHER, SELFPAY | END | disposition home or self-care (01) | LOC: SWHD 10:49 | PROVIDERS: PCP Family Medicine; Referring Provider Family Medicine; Visit Provider Student in an Organized Health Care Education/Training Program | DX: L89.312 Pressure ulcer of right buttock, stage 2 (principal); L89.322 Pressure ulcer of left buttock, stage 2; S81.802A Unspecified open wound, left lower leg, initial encounter; S81.801A Unspecified open wound, right lower leg, initial encounter; S90.821A Blister (nonthermal), right foot, initial encounter; X58.XXXA Exposure to other specified factors, initial encounter; E11.40 Type 2 diabetes mellitus with diabetic neuropathy, unspecified; E78.5 Hyperlipidemia, unspecified; I11.0 Hypertensive heart disease with heart failure; R60.0 Localized edema | CPT/HCPCS: 29581 ==

== ENCOUNTER → 2024-09-09 | Outpatient (CLI) | payer OTHER, SELFPAY | END | disposition home or self-care (01) | LOC: SWHD 10:58 | PROVIDERS: PCP Family Medicine; Referring Provider Family Medicine; Visit Provider Student in an Organized Health Care Education/Training Program | DX: L89.312 Pressure ulcer of right buttock, stage 2 (principal); L89.322 Pressure ulcer of left buttock, stage 2; S81.802A Unspecified open wound, left lower leg, initial encounter; S81.801A Unspecified open wound, right lower leg, initial encounter; S90.821A Blister (nonthermal), right foot, initial encounter; X58.XXXA Exposure to other specified factors, initial encounter; E11.40 Type 2 diabetes mellitus with diabetic neuropathy, unspecified; E78.5 Hyperlipidemia, unspecified; I11.0 Hypertensive heart disease with heart failure; R60.0 Localized edema | CPT/HCPCS: 29581 ==

== ENCOUNTER → 2024-09-23 | Outpatient (CLI) | payer OTHER, SELFPAY | END | disposition home or self-care (01) | LOC: SWHD 10:50 | PROVIDERS: PCP Family Medicine; Referring Provider Family Medicine; Visit Provider Student in an Organized Health Care Education/Training Program | DX: L89.312 Pressure ulcer of right buttock, stage 2 (principal); L89.322 Pressure ulcer of left buttock, stage 2; S81.802A Unspecified open wound, left lower leg, initial encounter; S81.801A Unspecified open wound, right lower leg, initial encounter; S90.821A Blister (nonthermal), right foot, initial encounter; X58.XXXA Exposure to other specified factors, initial encounter; E11.40 Type 2 diabetes mellitus with diabetic neuropathy, unspecified; E78.5 Hyperlipidemia, unspecified; I11.0 Hypertensive heart disease with heart failure; R60.0 Localized edema | CPT/HCPCS: 17250; A9270 ==

== ENCOUNTER → 2024-09-30 | Outpatient (CLI) | payer OTHER, SELFPAY | END | disposition home or self-care (01) | LOC: SWHD 10:56 | PROVIDERS: PCP Family Medicine; Referring Provider Family Medicine; Visit Provider Student in an Organized Health Care Education/Training Program | DX: L89.312 Pressure ulcer of right buttock, stage 2 (principal); L89.322 Pressure ulcer of left buttock, stage 2; S81.802A Unspecified open wound, left lower leg, initial encounter; S81.801A Unspecified open wound, right lower leg, initial encounter; S90.821A Blister (nonthermal), right foot, initial encounter; X58.XXXA Exposure to other specified factors, initial encounter; E11.40 Type 2 diabetes mellitus with diabetic neuropathy, unspecified; E78.5 Hyperlipidemia, unspecified; I11.0 Hypertensive heart disease with heart failure; R60.0 Localized edema | CPT/HCPCS: 17250; A9270 ==

== ENCOUNTER → 2024-10-09 | Outpatient (CLI) | payer OTHER, SELFPAY | END | disposition home or self-care (01) | LOC: SWHD 10:58 | PROVIDERS: PCP Family Medicine; Referring Provider Family Medicine; Visit Provider Student in an Organized Health Care Education/Training Program | DX: L89.312 Pressure ulcer of right buttock, stage 2 (principal); L89.322 Pressure ulcer of left buttock, stage 2; S81.802A Unspecified open wound, left lower leg, initial encounter; S81.801A Unspecified open wound, right lower leg, initial encounter; S90.821A Blister (nonthermal), right foot, initial encounter; X58.XXXA Exposure to other specified factors, initial encounter; E11.40 Type 2 diabetes mellitus with diabetic neuropathy, unspecified; E78.5 Hyperlipidemia, unspecified; I11.0 Hypertensive heart disease with heart failure; R60.0 Localized edema | CPT/HCPCS: 29580; A9270 ==

== ENCOUNTER → 2024-10-21 | Outpatient (CLI) | payer OTHER, SELFPAY | END | disposition home or self-care (01) | LOC: SWHD 10:49 | PROVIDERS: PCP Family Medicine; Referring Provider Family Medicine; Visit Provider Student in an Organized Health Care Education/Training Program | DX: L89.312 Pressure ulcer of right buttock, stage 2 (principal); L89.322 Pressure ulcer of left buttock, stage 2; S81.802A Unspecified open wound, left lower leg, initial encounter; S81.801A Unspecified open wound, right lower leg, initial encounter; S90.821A Blister (nonthermal), right foot, initial encounter; X58.XXXA Exposure to other specified factors, initial encounter; L97.519 Non-pressure chronic ulcer of other part of right foot with unspecified severity; E11.40 Type 2 diabetes mellitus with diabetic neuropathy, unspecified; E78.5 Hyperlipidemia, unspecified; R60.0 Localized edema; I11.0 Hypertensive heart disease with heart failure | CPT/HCPCS: 29581 ==

== ENCOUNTER → 2024-10-28 | Outpatient (CLI) | payer OTHER, SELFPAY | END | disposition home or self-care (01) | LOC: SWHD 10:38 | PROVIDERS: PCP Family Medicine; Referring Provider Family Medicine; Visit Provider Student in an Organized Health Care Education/Training Program | DX: L89.312 Pressure ulcer of right buttock, stage 2 (principal); S81.801A Unspecified open wound, right lower leg, initial encounter; S90.821A Blister (nonthermal), right foot, initial encounter; X58.XXXA Exposure to other specified factors, initial encounter; E11.40 Type 2 diabetes mellitus with diabetic neuropathy, unspecified; E78.5 Hyperlipidemia, unspecified; R60.0 Localized edema; I11.0 Hypertensive heart disease with heart failure; L97.519 Non-pressure chronic ulcer of other part of right foot with unspecified severity | CPT/HCPCS: 29581 ==

== ENCOUNTER → 2024-11-04 | Outpatient (CLI) | payer OTHER, SELFPAY | END | disposition home or self-care (01) | LOC: SWHD 10:49 | PROVIDERS: PCP Family Medicine; Referring Provider Family Medicine; Visit Provider Student in an Organized Health Care Education/Training Program | DX: L89.312 Pressure ulcer of right buttock, stage 2 (principal); S81.802A Unspecified open wound, left lower leg, initial encounter; S90.821A Blister (nonthermal), right foot, initial encounter; S81.801A Unspecified open wound, right lower leg, initial encounter; X58.XXXA Exposure to other specified factors, initial encounter; L97.519 Non-pressure chronic ulcer of other part of right foot with unspecified severity; E11.40 Type 2 diabetes mellitus with diabetic neuropathy, unspecified; E78.5 Hyperlipidemia, unspecified; R60.0 Localized edema; I11.0 Hypertensive heart disease with heart failure | CPT/HCPCS: 29581 ==

== ENCOUNTER → 2024-11-11 | Outpatient (CLI) | payer OTHER, SELFPAY | END | disposition home or self-care (01) | LOC: SWHD 10:46 | PROVIDERS: PCP Family Medicine; Referring Provider Family Medicine; Visit Provider Student in an Organized Health Care Education/Training Program | DX: L89.312 Pressure ulcer of right buttock, stage 2 (principal); S81.802A Unspecified open wound, left lower leg, initial encounter; S90.821A Blister (nonthermal), right foot, initial encounter; S81.801A Unspecified open wound, right lower leg, initial encounter; X58.XXXA Exposure to other specified factors, initial encounter; L97.519 Non-pressure chronic ulcer of other part of right foot with unspecified severity; E11.40 Type 2 diabetes mellitus with diabetic neuropathy, unspecified; E78.5 Hyperlipidemia, unspecified; R60.0 Localized edema; I11.0 Hypertensive heart disease with heart failure | CPT/HCPCS: 29581 ==

== ENCOUNTER 2025-02-02 16:21 | Emergency (ER) | payer OTHER, SELFPAY ==
--- NOTE | 2025-02-02 16:30 | EKG_ITS ---
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1945 Requested By: Augustin Hanson Order Number: [id number] Reading MD: Augustin Hanson Measurements Intervals [place] Rate: 50 P: 20 NV: 212 QRS: -15 QRSD: 93 T: -3 QT: 473 QTc: 433 Interpretive Statements SINUS BRADYCARDIA WITH FIRST DEGREE AV BLOCK WITH OCCASIONAL SUPRAVENTRICULAR PREMATURE COMPLEXES INFERIOR MYOCARDIAL INFARCTION , OF INDETERMINATE AGE [40+ ms Q WAVE AND/OR ST/T ABNORMALITY IN II/aVF] MODERATE T-WAVE ABNORMALITY, CONSIDER ANTERIOR ISCHEMIA [-0.1+ mV T-WAVE IN V3/V4] Compared to ECG 08/09/2024 15:50:42 First degree AV block now present Myocardial infarct finding now present T-wave abnormality now present Possible ischemia now present /[id number].pdf
--- NOTE | 2025-02-02 16:30 | XR_ITS ---
EXAMINATION: AP chest single view TECHNIQUE: AP portable semiupright chest single view Date and time: February 02, 2025, 1736 hours, comparison August 09, 2024 Exertional dyspnea shortness of breath today FINDINGS: Mild prominence left ventricle Mild ectasia thoracic aorta. No lobar pneumonia or pulmonary edema. Prominent osteopenia IMPRESSION: No pneumonia or pulmonary edema
--- NOTE | 2025-02-02 16:32 | PD.EDADULT ---
ED General RME/HPI General Chief complaint: Shortness of Breath/Dyspnea Stated complaint: SOB Time Seen by Provider: 02/02/25 16:30 Arrival date/time: 02/02/25 16:21 CC: Shortness of breath when getting excited, HPI ongoing for the past 3 months, also states that when he walks to his bathroom from his living room he becomes short of breath this is been constant. EMS reports stable vital signs and route. Patient is awake alert oriented. Currently patient denies chest pain difficulty breathing fever Related Data Home Medications ?Medication ?Instructions ?Recorded ?Confirmed metformin 1,000 mg tablet 1,000 mg PO BID #0 tabs 11/30/13 08/09/24 (Glucophage) metoprolol succinate 50 mg 25 mg PO QDAY 04/26/18 08/09/24 tablet,extended release 24 hr furosemide 40 mg tablet 40 mg PO BID 08/25/21 03/19/24 amlodipine 10 mg-benazepril 40 mg 1 cap PO ONCE PM 03/10/24 08/09/24 capsule atorvastatin 10 mg tablet 10 mg PO QPM 03/19/24 08/09/24 atorvastatin 40 mg tablet 40 mg PO QPM 08/09/24 08/09/24 Previous Rx's ?Medication ?Instructions ?Recorded aspirin 81 mg tablet,delayed 81 mg PO QDAY #30 tabs 03/12/24 release Allergies Allergy/AdvReac Type Severity Reaction Status Date / Time No Known Allergies Allergy Verified 02/02/25 17:12 Review of Systems Review of Systems Narrative Review of Systems: GEN: No fever, no chills, no weight loss EYES: No discharge, no visual changes, no pain HEENT: No ear pain, no congestion, no sore throat PULM: No shortness of breath, no cough, no congestion CV: No chest pain, + dyspnea on exertion, no palpitations GI: No nausea, no vomiting, no diarrhea, no pain, no constipation : No frequency, no urgency, no dysuria MUSC/SKEL: No joint pain, no back pain SKIN: No rash PSYCH: No hallucinations, no depression HEME/LYMPH: No easy bleeding or bruising tendencies NEURO: No weakness, no headache ED Exam Narrative Physical exam: [General: Obese deconditioned, but not ill kempt, not in any acute distress Head normocephalic HEENT: Eyes pupils are PERRLA EOMs are intact mouth pink moist membranes uvula is midline swallow symmetrical phonation is normal. Within acceptable limits Neck is supple nontender Chest equal chest rise nontender to palpation Respiratory: Clear to auscultation no wheezes crackles or rubs CV: Rate rhythm is regular no murmurs rubs or clicks Abdomen is distended secondary to body habitus soft nontender no masses positive bowel sounds all 4 quadrants Back: No CVA tenderness no spinous process tenderness from cervical spine thoracic and lumbar spine Skin: Intact no petechiae rash induration ulceration or crepitus Extremities: Considerable lower extremity edema chronic, nonpitting. Up to the mid calf. Decreased range of motion of the lower extremities secondary to deconditioning. Moving all extremities against resistance cap refill less than 2 seconds neurosensory intact Neuro: Awake alert oriented x3 Glascow coma 15 no focal deficits] Course Course Course Narrative: Laboratory wrote results show no acute finding requires emergent invention the creatinine of 1.4 is unchanged from previous visits there is no pneumonia on imaging the patient is awake alert oriented afebrile nontoxic-appearing this time we will discharge him home I suspect the complaints that he has regarding the shortness of breath are secondary to deconditioning advised him that he needs to talk to his PCP about home physical therapy as well. Patient also advised if there is a worsening of symptoms to return the emergency room for further evaluation. Quality Measures none Orders Category Date Time Status EKG (ED ONLY) *Do not use* NOW Care 02/02/25 16:30 Completed EKG (ED Only) Stat Exams 02/02/25 16:30 Draft XR chest 1V Stat Exams 02/02/25 16:30 Completed B-Type Natriuretic Peptide Stat Lab 02/02/25 17:00 Completed CBC Stat Lab 02/02/25 17:00 Completed Comprehensive Metabolic Panel Stat Lab 02/02/25 17:00 Completed Drug Screen,Urine Stat Lab 02/02/25 16:30 Ordered LDH (Lactate Dehydrogenase) Stat Lab 02/02/25 17:00 Completed Magnesium Stat Lab 02/02/25 17:00 Completed Partial Thromboplastin Time Stat Lab 02/02/25 17:00 Completed Prothrombin Time with INR Stat Lab 02/02/25 17:00 Completed Troponin I Stat Lab 02/02/25 17:00 Completed Urinalysis, C/S if Indicated Stat Lab 02/02/25 16:30 Ordered Vital Signs Vital signs: Vital Signs Temperature 97.3 F 02/02/25 17:12 Pulse Rate 49 L 02/02/25 17:12 Respiratory Rate 12 02/02/25 17:12 Blood Pressure 119/51 L 02/02/25 17:12 Pulse Oximetry (%) 93 L 02/02/25 17:12 Oxygen Delivery Method Room Air 02/02/25 17:12 Discharge Plan Plan Patient Disposition: HOME (Self Care) Patient condition on transfer: Stable Prescriptions/Referrals Prescriptions/Med Rec: No Action metformin [Glucophage] 1,000 MG tablet 1,000 mg PO BID Qty: 0 furosemide 40 mg tablet 40 mg PO BID Patient Comments: TAKE 1 TABLET BY MOUTH ONCE A DAY AT NOON Rx Instructions: TAKE ONE TABLET BY MOUTH AT 10AM & ONE TABLET AT 4PM metoprolol succinate 50 mg Tablet Extended Release 24 Hr 25 mg PO QDAY amlodipine-benazepril 10-40 mg capsule 1 cap PO ONCE PM Patient Comments: TAKE 1 CAPSULE BY MOUTH DAILY AT DINNER. aspirin 81 mg Tablet,Delayed Release (Dr/Ec) 81 mg PO QDAY Qty: 30 0RF atorvastatin 10 mg tablet 10 mg PO QPM atorvastatin 40 mg tablet 40 mg PO QPM Referrals: Jose Manuel Duff MD [Primary Care Provider, Family Practice] - In 1 week Problem List Clinical Impression: Exertional dyspnea, Weakness Patient/Caregiver Discharge Instructions Education Materials: ED Shortness of Breath (Dyspnea), ED Weakness (Uncertain Cause) Additional Instructions: Follow-up with your primary care doctor I suspect part of this is deconditioning there is no acute finding from an emergency room standpoint consider home therapy for physical therapy. If there is worsening of symptoms return to the emergency room for reevaluation. Print Language: Andorran Stand Alone Forms: Ailyn Award Info., Patient Portal Info Letter PA/FINANCIAL INVESTMENT ADVISER Supervising Physician PA/FINANCIAL INVESTMENT ADVISER Supervising Physician: Augustin Roy ENP [facility] Clinical Information Provided by: patient and EMS [facility] Meds/Rx considered, not ordered None Labs/Rad/Tests considered, not ordered None Chronic Illness/Social Conditions Explain: Diabetes renal insufficiency decubitus ulcer of the buttock EKG Interpretation EKG #1: EKG Interpretation: EKG performed at 1731 shows a ventricular rate of 50 WA interval 212 QRS of 93 QTc of 446 sinus bradycardia with first-degree block. Labs Labs: interpreted by ak Lab(s) Interpretation(s): CBC shows no acute leukocytosis anemia thrombocytopenia Coags within acceptable limits CMP shows glucose of 132 otherwise no other electrolyte imbalances creatinine 1.4 BUN of 21. Note: With comparison to other lab draws the creatinine is unchanged from previous blood draws No transaminitis or T. bili elevation. Troponin and BNP are unremarkable. Imaging Imaging interpretation: interpreted by ak Imaging Interpretation(s): Chest x-ray is unremarkable.
[2025-02-02 16:43] VITALS: RESP 20; BMI 36.1
[2025-02-02 17:12] VITALS: BP 119/51; PULSE 49; RESP 12; TEMP 36.3; O2SAT 93
[2025-02-02 17:19] LABS: Basophils # (Auto) 0.1 Thou/mm3 (0.0-0.2); Basophils % (Auto) 1 % (0-2.5); Eosinophils # (Auto) 0.2 Thou/mm3 (0.0-0.5); Eosinophils % (Auto) 2 % (0-10); Hematocrit 45.6 % (41.0-53.0); Hemoglobin 14.7 g/dL (13.5-16.0); Immature Granulocytes Auto 0.04 Thou/mm3 (0.00-0.00); Lymphocytes # (Auto) 3.0 Thou/mm3 (1.0-4.8); Lymphocytes % (Auto) 34 % (10-50); Mean Corpuscular HGB Conc 32.2 g/dl (31.0-37.0); Mean Corpuscular Hemoglobin 29.5 pg (25.0-35.0); Mean Corpuscular Volume 91 fL (80-100); Monocytes # (Auto) 0.5 Thou/mm3 (0.0-0.8); Monocytes % (Auto) 6 % (0-12); Neutrophils # (Auto) 5.1 Thou/mm3 (1.8-7.7); Neutrophils % (Auto) 57 % (37-80); Nucleated Red Blood Cell # 0.00 Thou/mm3 (0.00-0.00); Nucleated Red Blood Cell % 0 /100 WBC (0); Platelet Count 173 Thou/mm3 (140-440); RDW Standard Deviation 46.1 fL (35.1-43.9); Red Blood Count 4.99 Miln/mm3 (4.50-5.90); White Blood Count 8.8 Thou/mm3 (3.8-10.6)
--- NOTE | 2025-02-02 17:22 | PC.NURSE ---
PETTYA FROM HOME, FOR INCREASED SOB. PT REPORTS THAT HE STARTED HAVING IT ABOUT 30 YEARS AGO, BUT IT IS WORSE NOW. PT STATES HE IS WC BOUND AT BASELINE, HAS WOUND TO LEFT BUTTOCK THAT BLEEDS CONTINUOUSLY. MEPILEX PLACED BY THIS RN, PT ALSO PLACED ON WAFFLE MATTRESS. PT ALSO ARRIVED WITH SKIN TEAR TO LEFT FOREARM, HAS SEVERE EDEMA TO B/L LE. HER PTS HR IS 49 ON TELE 91% ON RA PLACED ON 2L NC CAME UP TO 96%.
[2025-02-02 17:31] LABS: INR 1.0 (0.9-1.3); Partial Thromboplastin Time 27.1 Seconds (22.0-36.0); Prothrombin Time 11.0 Seconds (9.0-12.2)
[2025-02-02 17:36] LABS: Alanine Aminotransferase 12 U/L (10-49); Albumin, Serum 4.0 gm/dL (3.4-4.8); Albumin/Globulin Ratio 1.6 (1.2-2.2); Alkaline Phosphatase 88 U/L (46-116); Anion Gap 12 (7-16); Aspartate Amino Transferase 15 U/L (0-34); BUN/Creatinine Ratio 15 Ratio (12-20); Bilirubin,Total 0.3 mg/dL (0.3-1.2); Blood Urea Nitrogen 21 mg/dL (9-23); Calcium 9.1 mg/dL (8.3-10.6); Calcium (Corrected) 9.1 mg/dL (8.5-10.1); Carbon Dioxide 26.4 mMol/L (20.0-31.0); Chloride 101 mMol/L (98-107); Creatinine (Component) 1.4 mg/dL (0.6-1.3); Estimated Creatinine Clearance 52.4 mL/min (>60); Globulin 2.5 gm/dL (2.3-3.5); Glucose 132 mg/dL (74-106); LDH (Lactate Dehydrogenase) 128 U/L (120-246); Magnesium 1.8 mg/dL (1.6-2.6); Osmolality,Calculated 282 (275-295); Potassium 4.5 mMol/L (3.4-5.1); Sodium 139 mMol/L (136-145); Total Protein 6.5 gm/dL (5.7-8.2); Troponin I < 0.020 ng/mL (0.0-0.045); eGFR 50 See Note
[2025-02-02 17:51] LABS: B-Type Natriuretic Peptide 38 pg/mL (0-100)
[2025-02-02 18:05] VITALS: BP 122/60; PULSE 47; RESP 19; TEMP 36.5; O2SAT 97
[2025-02-02 21:45] VITALS: BP 148/71; PULSE 62; RESP 18; TEMP 36.4; O2SAT 97
== END 2025-02-02 21:45 | disposition home or self-care (01) ==
PROVIDERS: Registered Nurse General Practice; Emergency Provider Family Medicine; PCP Family Medicine
DX: R06.09 Other forms of dyspnea (principal); E11.29 Type 2 diabetes mellitus with other diabetic kidney complication; Z79.84 Long term (current) use of oral hypoglycemic drugs
CPT/HCPCS: 36415; 71045; 80053; 80307; 81001; 83615; 83735; 83880; 84484; 85025; 85610; 85730; 93005; 99283